=== PATIENT | male | born 1965 | race African-American/Black ===

== ENCOUNTER 2016-12-05 02:15 | Emergency (ER) | payer MEDICAID ==
[~2016-12-05] VITALS: Ht 167.6 cm; Wt 75.0 kg
[2016-12-05 02:30] VITALS: BP 114/71; PULSE 68; RESP 16; TEMP 97.8
[2016-12-05] MEDS ORDERED: SERO25TA PO ×2 (02:40→10:24)
[2016-12-05] MEDS ORDERED: DIVA250ER PO ×2 (02:40→10:22)
[2016-12-05] MEDS ORDERED: SODIUM CHLORIDE 0.9% FLUSH 10 ML FLUSH IVF PRN (02:45)
--- NOTE | 2016-12-05 02:52 | PD ---
HPI Chief Complaint: Chest Pain Time Seen by Provider: 02:32 Travel History International Travel<30 days: No Contact w/Intl Traveler<30days: No Traveled to known affect area: No History of Present Illness HPI Patient is a 51-year-old male who presents to emergency room with multiple complaints. Patient reports that he has history of schizoaffective disorder, reports that he stopped taking his Depakote as well as his Seroquel one month ago as he felt that he was getting much better. Patient reports that for the past few weeks, he has been having hallucinations. Patient reports that today, he woke up from sleep and had left-sided chest pain. Patient reports that symptoms lasted for a few minutes and resolved on its own. Patient with no chest pain at this time. Patient reports that he is homeless, reports that he has thoughts of suicide. Patient denies any homicidal ideations. Patient denies use of any drugs or alcohol. Patient with no other complaints at this time. PFSH Past Medical History Depression: Yes Diabetes: Yes (borderline) Patient Takes Glucophage: No Schizophrenia: Yes Past Surgical History Surgical History: No Previous Surgery Social History Alcohol Use: No Tobacco Use: Yes (occassional) Substance Use: No Allergies-Medications (Allergen,Severity, Reaction): Coded Allergies: No Known Allergies (Unverified , 12/05/16) Reported Meds & Prescriptions Reported Meds & Active Scripts Active Reported Depakote ER (Divalproex Sodium) 250 Mg Elzbieta 250 Mg PO DAILY Seroquel (Quetiapine Fumarate) 25 Mg Tab 25 Mg PO DAILY Review of Systems General / Constitutional: No: Fever Eyes: No: Visual changes HENT: No: Headaches Cardiovascular: Positive: Chest Pain or Discomfort Respiratory: No: Shortness of Breath Gastrointestinal: No: Abdominal Pain Genitourinary: No: Dysuria Musculoskeletal: No: Pain Skin: No Rash Neurologic: No: Weakness Psychiatric: Positive: Depression, Suicidal Ideations, Disorder of Thought, Substance Abuse, No: Homicidal Ideation Endocrine: No: Polydipsia Hematologic/Lymphatic: No: Easy Bruising Physical Exam Narrative GENERAL: mild distress SKIN: Focused skin assessment warm/dry. HEAD: Atraumatic. Normocephalic. EYES: Pupils equal and round. No scleral icterus. No injection or drainage. ENT: No nasal bleeding or discharge. Mucous membranes pink and moist. NECK: Trachea midline. No JVD. CARDIOVASCULAR: Regular rate and rhythm. No murmur appreciated. RESPIRATORY: No accessory muscle use. Clear to auscultation. Breath sounds equal bilaterally. GASTROINTESTINAL: Abdomen soft, non-tender, nondistended. Hepatic and splenic margins not palpable. MUSCULOSKELETAL: No obvious deformities. No clubbing. No cyanosis. No edema. NEUROLOGICAL: Awake and alert. No obvious cranial nerve deficits. Motor grossly within normal limits. Normal speech. PSYCHIATRIC:Flat mood and affect; suicidal ideations Data Data Last Documented VS Vital Signs Date Time Temp Pulse Resp B/P (MAP) Pulse Ox O2 Delivery O2 Flow Rate FiO2 12/05/16 02:30 97.8 68 16 114/71 (85) Orders Orders Electrocardiogram (12/05/16 02:37) Ckmb (Isoenzyme) Profile (12/05/16 02:37) Complete Blood Count With Diff (12/05/16 02:37) Comprehensive Metabolic Panel (12/05/16 02:37) D-Dimer (12/05/16 02:37) Prothrombin Time / Inr (Pt) (12/05/16 02:37) Act Partial Throm Time (Ptt) (12/05/16 02:37) Troponin I (12/05/16 02:37) Chest, Single Ap (12/05/16 02:37) Ecg Monitoring (12/05/16 02:37) Iv Access Insert/Monitor (12/05/16 02:37) Oximetry (12/05/16 02:37) Sodium Chloride 0.9% Flush (Ns Flush) (12/05/16 02:45) Psych Screen (12/05/16 02:37) Drug Screen, Random Urine (12/05/16 02:37) Alcohol (Ethanol) (12/05/16 02:37) Salicylates (Aspirin) (12/05/16 02:37) Tylenol (Acetaminophen) (12/05/16 02:37) Ckmb (Isoenzyme) Profile (12/05/16 06:00) Troponin I (12/05/16 06:00) CKMB (12/05/16 03:00) CKMB% (12/05/16 03:00) Sodium Chlor 0.9% 1000 Ml Inj (Ns 1000 M (12/05/16 04:30) CKMB (12/05/16 06:00) CKMB% (12/05/16 06:00) Labs Laboratory Tests Test 12/05/16 03:00 12/05/16 06:00 White Blood Count 7.9 TH/MM3 Red Blood Count 4.67 MIL/MM3 Hemoglobin 12.7 GM/DL Hematocrit 38.5 % Mean Corpuscular Volume 82.4 FL Mean Corpuscular Hemoglobin 27.1 PG Mean Corpuscular Hemoglobin Concent 32.9 % Red Cell Distribution Width 14.0 % Platelet Count 241 TH/MM3 Mean Platelet Volume 8.7 FL Neutrophils (%) (Auto) 61.4 % Lymphocytes (%) (Auto) 28.6 % Monocytes (%) (Auto) 6.6 % Eosinophils (%) (Auto) 2.5 % Basophils (%) (Auto) 0.9 % Neutrophils # (Auto) 4.9 TH/MM3 Lymphocytes # (Auto) 2.3 TH/MM3 Monocytes # (Auto) 0.5 TH/MM3 Eosinophils # (Auto) 0.2 TH/MM3 Basophils # (Auto) 0.1 TH/MM3 CBC Comment DIFF FINAL Differential Comment Prothrombin Time 11.3 SEC Prothromb Time International Ratio 1.0 RATIO Activated Partial Thromboplast Time 31.7 SEC D-Dimer Quantitative (PE/DVT) LESS THAN 0.19 MG/L FEU Blood Urea Nitrogen 11 MG/DL Creatinine 0.84 MG/DL Random Glucose 88 MG/DL Total Protein 6.2 GM/DL Albumin 3.5 GM/DL Calcium Level 7.8 MG/DL Alkaline Phosphatase 58 U/L Aspartate Amino Transf (AST/SGOT) 23 U/L Alanine Aminotransferase (ALT/SGPT) 26 U/L Total Bilirubin 0.4 MG/DL Sodium Level 141 MEQ/L Potassium Level 3.6 MEQ/L Chloride Level 107 MEQ/L Carbon Dioxide Level 25.3 MEQ/L Anion Gap 9 MEQ/L Estimat Glomerular Filtration Rate 116 ML/MIN Total Creatine Kinase 650 U/L 578 U/L Creatine Kinase MB 4.3 NG/ML 3.8 NG/ML Creatine Kinase MB % 0.7 % 0.7 % Troponin I LESS THAN 0.02 NG/ML LESS THAN 0.02 NG/ML Salicylates Level LESS THAN 1.7 MG/DL Acetaminophen Level 7.2 MCG/ML Ethyl Alcohol Level LESS THAN 3 MG/DL MDM Medical Decision Making Medical Screen Exam Complete: Yes Emergency Medical Condition: Yes Medical Record Reviewed: Yes Interpretation(s) EKG at 0226: NSR at 62bpm, qt/qtc: 370/374, no acute st or t wave changes Vital Signs Date Time Temp Pulse Resp B/P (MAP) Pulse Ox O2 Delivery O2 Flow Rate FiO2 12/05/16 02:30 97.8 68 16 114/71 (85) Differential Diagnosis Differential includes schizoaffective disorder, medication noncompliance, ACS, arrhythmia, pneumothorax, PE, electrolyte abnormality Narrative Course Patient was placed on a nurse monitoring upon arrival to the emergency room. EKG was obtained which showed no acute ST-T wave changes. Patient with no chest pain at this time. Patient now reports that he presented to the emergency room as he is having hallucinations and suicidal thoughts. Lab work including psychiatric screening labs ordered. Patient was placed under Reece Act upon presentation to the ER Vital Signs Date Time Temp Pulse Resp B/P (MAP) Pulse Ox O2 Delivery O2 Flow Rate FiO2 12/05/16 02:30 97.8 68 16 114/71 (85) Laboratory Tests Test 12/05/16 03:00 12/05/16 06:00 White Blood Count 7.9 TH/MM3 (4.0-11.0) Red Blood Count 4.67 MIL/MM3 (4.50-5.90) Hemoglobin 12.7 GM/DL (13.0-17.0) Hematocrit 38.5 % (39.0-51.0) Mean Corpuscular Volume 82.4 FL (80.0-100.0) Mean Corpuscular Hemoglobin 27.1 PG (27.0-34.0) Mean Corpuscular Hemoglobin Concent 32.9 % (32.0-36.0) Red Cell Distribution Width 14.0 % (11.6-17.2) Platelet Count 241 TH/MM3 (150-450) Mean Platelet Volume 8.7 FL (7.0-11.0) Neutrophils (%) (Auto) 61.4 % (16.0-70.0) Lymphocytes (%) (Auto) 28.6 % (9.0-44.0) Monocytes (%) (Auto) 6.6 % (0.0-8.0) Eosinophils (%) (Auto) 2.5 % (0.0-4.0) Basophils (%) (Auto) 0.9 % (0.0-2.0) Neutrophils # (Auto) 4.9 TH/MM3 (1.8-7.7) Lymphocytes # (Auto) 2.3 TH/MM3 (1.0-4.8) Monocytes # (Auto) 0.5 TH/MM3 (0-0.9) Eosinophils # (Auto) 0.2 TH/MM3 (0-0.4) Basophils # (Auto) 0.1 TH/MM3 (0-0.2) CBC Comment DIFF FINAL Differential Comment Prothrombin Time 11.3 SEC (9.8-11.6) Prothromb Time International Ratio 1.0 RATIO Activated Partial Thromboplast Time 31.7 SEC (24.3-30.1) D-Dimer Quantitative (PE/DVT) LESS THAN 0.19 MG/L FEU Blood Urea Nitrogen 11 MG/DL (7-18) Creatinine 0.84 MG/DL (0.60-1.30) Random Glucose 88 MG/DL (74-106) Total Protein 6.2 GM/DL (6.4-8.2) Albumin 3.5 GM/DL (3.4-5.0) Calcium Level 7.8 MG/DL (8.5-10.1) Alkaline Phosphatase 58 U/L (45-117) Aspartate Amino Transf (AST/SGOT) 23 U/L (15-37) Alanine Aminotransferase (ALT/SGPT) 26 U/L (12-78) Total Bilirubin 0.4 MG/DL (0.2-1.0) Sodium Level 141 MEQ/L (136-145) Potassium Level 3.6 MEQ/L (3.5-5.1) Chloride Level 107 MEQ/L (98-107) Carbon Dioxide Level 25.3 MEQ/L (21.0-32.0) Anion Gap 9 MEQ/L (5-15) Estimat Glomerular Filtration Rate 116 ML/MIN (>89) Total Creatine Kinase 650 U/L (39-308) 578 U/L (39-308) Creatine Kinase MB 4.3 NG/ML (0.5-3.6) 3.8 NG/ML (0.5-3.6) Creatine Kinase MB % 0.7 % (0.0-4.0) 0.7 % (0.0-4.0) Troponin I LESS THAN 0.02 NG/ML LESS THAN 0.02 NG/ML Salicylates Level LESS THAN 1.7 MG/DL Acetaminophen Level 7.2 MCG/ML (10.0-30.0) Ethyl Alcohol Level LESS THAN 3 MG/DL (0-5) Two set of troponins are negative, 3 hours apart, ekg with no acute changes. Patient with no chest pain at this time, patient cleared for psychiatric screening Leigh Ann Esquivel DO Dec 05, 2016 02:52
--- NOTE | 2016-12-05 03:09 | RADRPT ---
EXAM DATE/TIME: 12/05/2016 02:43 [facility] COMPARISON: No previous studies available for comparison. INDICATIONS : Chest and back pain. MEDICAL HISTORY : Hypertension. SURGICAL HISTORY : None. ENCOUNTER: Initial ACUITY: 1 day PAIN SCORE: 6/10 LOCATION: Bilateral chest back FINDINGS: A single view of the chest demonstrates the lungs to be symmetrically aerated without evidence of mas s, infiltrate or effusion. The cardiomediastinal contours are unremarkable. Osseous structures are intact. CONCLUSION: No evidence of acute cardiopulmonary disease. Jeff Loaiza MD on December 05, 2016 at 3:08 Board Certified Radiologist. This report was verified electronically.
[2016-12-05 03:21] LABS: AUTOMATED NEUTROPHIL # 4.9 TH/MM3 (1.8-7.7); BASOPHIL # 0.1 TH/MM3 (0-0.2); BASOPHIL % 0.9 % (0.0-2.0); EOSINOPHIL # 0.2 TH/MM3 (0-0.4); EOSINOPHIL % 2.5 % (0.0-4.0); HEMATOCRIT 38.5 % (39.0-51.0); HEMO FLAGS DIFF FINAL; LYMPH % 28.6 % (9.0-44.0); LYMPHOCYTE # 2.3 TH/MM3 (1.0-4.8); MEAN CELL VOLUME 82.4 FL (80.0-100.0); MEAN CORPUSCULAR HEMOGLOBIN 27.1 PG (27.0-34.0); MEAN CORPUSCULAR HGB CONC 32.9 % (32.0-36.0); MONO % 6.6 % (0.0-8.0); NEUT % 61.4 % (16.0-70.0); PLATELET COUNT 241 TH/MM3 (150-450); RED BLOOD COUNT 4.67 MIL/MM3 (4.50-5.90); WHITE BLOOD COUNT 7.9 TH/MM3 (4.0-11.0)
[2016-12-05 03:30] LABS: ALT (GPT) 26 U/L (12-78); ANION GAP 9 MEQ/L (5-15); AST (GOT) 23 U/L (15-37); BICARBONATE 25.3 MEQ/L (21.0-32.0); BLOOD UREA NITROGEN 11 MG/DL (7-18); CHLORIDE 107 MEQ/L (98-107); GLOMERULAR FILTRATION RATE 116 ML/MIN (>89); POTASSIUM 3.6 MEQ/L (3.5-5.1); SODIUM (NA) 141 MEQ/L (136-145)
[2016-12-05 03:35] LABS: ACETAMINOPHEN 7.2 MCG/ML (10.0-30.0); ALKALINE PHOSPHATASE 58 U/L (45-117); CREATINE KINASE 650 U/L (39-308); TOTAL BILIRUBIN ADULT 0.4 MG/DL (0.2-1.0)
[2016-12-05 03:37] LABS: APTT (PATIENT) 31.7 SEC (24.3-30.1); PROTHROMBIN TIME - PATIENT 11.3 SEC (9.8-11.6)
[2016-12-05 04:09] LABS: ALCOHOL LESS THAN 3 MG/DL (0-5)
[2016-12-05 04:22] LABS: CKMB 4.3 NG/ML (0.5-3.6)
[2016-12-05] MEDS ORDERED: SODIUM CHLOR 0.9% 1000 ML INJ 1,000 ML IV ONE (04:30)
[2016-12-05 06:31] LABS: CREATINE KINASE 578 U/L (39-308)
[2016-12-05 06:43] LABS: CKMB 3.8 NG/ML (0.5-3.6)
[2016-12-05 07:28] VITALS: BP 138/74; PULSE 63; RESP 13; O2SAT 97
--- NOTE | 2016-12-05 10:21 | PD ---
History of Present Illness Chief Complaint: Chest Pain Time Seen by Provider: 10:10 Travel History International Travel<30 Days: No Contact w/Intl Traveler<30days: No Known affected area: No Legal Status Legal Status: Reece Act Reece Act Signed By: Dr. Alvin LAKHANI [facility] [place] of Present Illness: History of Present Illness HPI Patient is a 51-year-old male with hx of schizoaffective disorder, not currently on medication because he was feeling better, who presents to emergency room with multiple complaints. Patient reports that for the past few weeks, he has been having hallucinations and admits to having stopped his psychiatric medications x 2 months. Patient reports that he is homeless, reports that he has thoughts of suicide but decided to come to the hospital for treatment . Patient denies any homicidal ideations. Patient seen. EMR reviewed.No previous contact with [facility] [place]. He is alert and oriented, casually and neatly dressed. Engaging and cooperative. There is no psychosis and is denying hallucinatory process. No meme and no objective clinical signs of depression. Speech is clear and logical, No psychosis. Patient denies suicidal ideation, intent or plan. He recognizes that his symptoms are related to not taking his medications. He recently moved to the area and is unsure if he will stay here or if he will return back to [place]. PFSH Past Medical History Depression: Yes Diabetes: Yes (borderline) Patient Takes Glucophage: No Schizophrenia: Yes Past Surgical History Surgical History: No Previous Surgery Psychiatric History Psychiatric History Hx Psychiatric Treatment: HX: SCHIZOAFFECTIVE DISORDER Past suicde attempt one year ago bu overdosin on pills No hx of violence. History of Inpatient Treatment: Yes (Last psychiatric [address] [facility]) Guns or firearms in home: No Social History Born and raised in [place]. Came here 2 months ago. Living with a friend. Works at [employer]. Hx Alcohol Use: No Hx Tobacco Use: Yes (occassional) Hx Substance Use: Yes Substance Use Type: Alcohol Hx of Substance Use Treatment: Yes Family Psychiatric History None reported Allergies-Medications (Allergen,Severity, Reaction): Coded Allergies: No Known Allergies (Unverified , 12/05/16) Reported Meds & Prescriptions Reported Meds & Active Scripts Active Reported Depakote ER (Divalproex Sodium) 250 Mg Elzbieta 250 Mg PO DAILY Seroquel (Quetiapine Fumarate) 25 Mg Tab 25 Mg PO DAILY Review of Systems Musculoskeletal: COMPLAINS OF: Back pain Mental Status Examination Appearance: Appropriate Speech: Unremarkable Orientation: x3 Memory: Unremarkable Thought Content: Goal directed Thought Associations: Intact Language: Other (spontaneous) Fund of Knowledge: Average Hallucination Type: None Attention and Concentration: Good Suicidal Ideation: No Previous Suicide Attempts: Yes Homicidal Ideation: No Previous Homicide Attempts: No Insight: Adequate Judgment: Adequate Affect: Good Mood: Appropriate Motor Activity: Normal gait MDM Medical Decision Making Medical Record Reviewed: Yes Assessment/Plan HPI Patient is a 51-year-old male with hx of schizoaffective disorder, not currently on medication because he was feeling better, who presents to emergency room with multiple complaints. Patient reports that for the past few weeks, he has been having hallucinations and admits to having stopped his psychiatric medications x 2 months. Patient reports that he had been staying with a friend but that they had been having problems. Patient was monitored and he did not present any suicdal or homicidal ideation, intent or plan, no meme and no psychosis. he is accepting a 30 day Rx until he schedules appointment with a provider. Nurse Tonya spoke with his caregiver, Tonya who has no concerns if he is discharged. BA is lifted. Psychiatrically clear for discharge Orders Orders Electrocardiogram (12/05/16 02:37) Ckmb (Isoenzyme) Profile (12/05/16 02:37) Complete Blood Count With Diff (12/05/16 02:37) Comprehensive Metabolic Panel (12/05/16 02:37) D-Dimer (12/05/16 02:37) Prothrombin Time / Inr (Pt) (12/05/16 02:37) Act Partial Throm Time (Ptt) (12/05/16 02:37) Troponin I (12/05/16 02:37) Chest, Single Ap (12/05/16 02:37) Ecg Monitoring (12/05/16 02:37) Iv Access Insert/Monitor (12/05/16 02:37) Oximetry (12/05/16 02:37) Sodium Chloride 0.9% Flush (Ns Flush) (12/05/16 02:45) Psych Screen (12/05/16 02:37) Drug Screen, Random Urine (12/05/16 02:37) Alcohol (Ethanol) (12/05/16 02:37) Salicylates (Aspirin) (12/05/16 02:37) Tylenol (Acetaminophen) (12/05/16 02:37) Ckmb (Isoenzyme) Profile (12/05/16 06:00) Troponin I (12/05/16 06:00) CKMB (12/05/16 03:00) CKMB% (12/05/16 03:00) Sodium Chlor 0.9% 1000 Ml Inj (Ns 1000 M (12/05/16 04:30) CKMB (12/05/16 06:00) CKMB% (12/05/16 06:00) Results Vital Signs Date Time Temp Pulse Resp B/P (MAP) Pulse Ox O2 Delivery O2 Flow Rate FiO2 12/05/16 07:28 63 13 138/74 (95) 97 Room Air 12/05/16 02:30 97.8 68 16 114/71 (85) Laboratory Tests Test 12/05/16 03:00 12/05/16 06:00 12/05/16 09:00 White Blood Count 7.9 Red Blood Count 4.67 Hemoglobin 12.7 Hematocrit 38.5 Mean Corpuscular Volume 82.4 Mean Corpuscular Hemoglobin 27.1 Mean Corpuscular Hemoglobin Concent 32.9 Red Cell Distribution Width 14.0 Platelet Count 241 Mean Platelet Volume 8.7 Neutrophils (%) (Auto) 61.4 Lymphocytes (%) (Auto) 28.6 Monocytes (%) (Auto) 6.6 Eosinophils (%) (Auto) 2.5 Basophils (%) (Auto) 0.9 Neutrophils # (Auto) 4.9 Lymphocytes # (Auto) 2.3 Monocytes # (Auto) 0.5 Eosinophils # (Auto) 0.2 Basophils # (Auto) 0.1 CBC Comment DIFF FINAL Differential Comment Prothrombin Time 11.3 Prothromb Time International Ratio 1.0 Activated Partial Thromboplast Time 31.7 D-Dimer Quantitative (PE/DVT) LESS THAN 0.19 Blood Urea Nitrogen 11 Creatinine 0.84 Random Glucose 88 Total Protein 6.2 Albumin 3.5 Calcium Level 7.8 Alkaline Phosphatase 58 Aspartate Amino Transf (AST/SGOT) 23 Alanine Aminotransferase (ALT/SGPT) 26 Total Bilirubin 0.4 Sodium Level 141 Potassium Level 3.6 Chloride Level 107 Carbon Dioxide Level 25.3 Anion Gap 9 Estimat Glomerular Filtration Rate 116 Total Creatine Kinase 650 578 Creatine Kinase MB 4.3 3.8 Creatine Kinase MB % 0.7 0.7 Troponin I LESS THAN 0.02 LESS THAN 0.02 Salicylates Level LESS THAN 1.7 Acetaminophen Level 7.2 Ethyl Alcohol Level LESS THAN 3 Diagnosis Primary Impression: Schizoaffective disorder Psychiatrically Cleared: Yes Med/ Other Pt Specific Info: Prescription(s) given Prescriptions Quetiapine (Seroquel) 25 Mg Tab 25 MG PO DAILY for Agitation for 30 Days, #30 TAB 0 Refills Prov: Kate Gale 12/05/16 Divalproex ER (Depakote ER) 250 Mg Elzbieta 250 MG PO DAILY for Control Seizures for 30 Days, #30 TAB 0 Refills Prov: Kate Gale 12/05/16 Disposition: 01 DISCHARGE HOME Condition: Stable Problem Qualifiers Primary Impression: Schizoaffective disorder Qualified Codes: F25.0 - Schizoaffective disorder, bipolar type Kate Gale Dec 05, 2016 10:20
--- NOTE | 2016-12-05 11:28 | PD ---
Physical Exam Date Seen by Provider: Dec 05, 2016 Time Seen by Provider: 10:44 Narrative 51-year-old male was under a Reece act for suicidal ideation waiting to be seen by the psych screener. Please refer to her notes. Psych has lifted the Reece act. Patient will be discharged home. As per the nurse patient wants to go to a custodial. Data Data Last Documented VS Vital Signs Date Time Temp Pulse Resp B/P (MAP) Pulse Ox O2 Delivery O2 Flow Rate FiO2 12/05/16 11:02 12/05/16 07:28 63 13 97 Room Air 12/05/16 02:30 97.8 Orders Orders Electrocardiogram (12/05/16 02:37) Ckmb (Isoenzyme) Profile (12/05/16 02:37) Complete Blood Count With Diff (12/05/16 02:37) Comprehensive Metabolic Panel (12/05/16 02:37) D-Dimer (12/05/16 02:37) Prothrombin Time / Inr (Pt) (12/05/16 02:37) Act Partial Throm Time (Ptt) (12/05/16 02:37) Troponin I (12/05/16 02:37) Chest, Single Ap (12/05/16 02:37) Ecg Monitoring (12/05/16 02:37) Iv Access Insert/Monitor (12/05/16 02:37) Oximetry (12/05/16 02:37) Sodium Chloride 0.9% Flush (Ns Flush) (12/05/16 02:45) Psych Screen (12/05/16 02:37) Drug Screen, Random Urine (12/05/16 02:37) Alcohol (Ethanol) (12/05/16 02:37) Salicylates (Aspirin) (12/05/16 02:37) Tylenol (Acetaminophen) (12/05/16 02:37) Ckmb (Isoenzyme) Profile (12/05/16 06:00) Troponin I (12/05/16 06:00) CKMB (12/05/16 03:00) CKMB% (12/05/16 03:00) Sodium Chlor 0.9% 1000 Ml Inj (Ns 1000 M (12/05/16 04:30) CKMB (12/05/16 06:00) CKMB% (12/05/16 06:00) Labs Laboratory Tests Test 12/05/16 03:00 12/05/16 06:00 12/05/16 09:00 White Blood Count 7.9 TH/MM3 Red Blood Count 4.67 MIL/MM3 Hemoglobin 12.7 GM/DL Hematocrit 38.5 % Mean Corpuscular Volume 82.4 FL Mean Corpuscular Hemoglobin 27.1 PG Mean Corpuscular Hemoglobin Concent 32.9 % Red Cell Distribution Width 14.0 % Platelet Count 241 TH/MM3 Mean Platelet Volume 8.7 FL Neutrophils (%) (Auto) 61.4 % Lymphocytes (%) (Auto) 28.6 % Monocytes (%) (Auto) 6.6 % Eosinophils (%) (Auto) 2.5 % Basophils (%) (Auto) 0.9 % Neutrophils # (Auto) 4.9 TH/MM3 Lymphocytes # (Auto) 2.3 TH/MM3 Monocytes # (Auto) 0.5 TH/MM3 Eosinophils # (Auto) 0.2 TH/MM3 Basophils # (Auto) 0.1 TH/MM3 CBC Comment DIFF FINAL Differential Comment Prothrombin Time 11.3 SEC Prothromb Time International Ratio 1.0 RATIO Activated Partial Thromboplast Time 31.7 SEC D-Dimer Quantitative (PE/DVT) LESS THAN 0.19 MG/L FEU Blood Urea Nitrogen 11 MG/DL Creatinine 0.84 MG/DL Random Glucose 88 MG/DL Total Protein 6.2 GM/DL Albumin 3.5 GM/DL Calcium Level 7.8 MG/DL Alkaline Phosphatase 58 U/L Aspartate Amino Transf (AST/SGOT) 23 U/L Alanine Aminotransferase (ALT/SGPT) 26 U/L Total Bilirubin 0.4 MG/DL Sodium Level 141 MEQ/L Potassium Level 3.6 MEQ/L Chloride Level 107 MEQ/L Carbon Dioxide Level 25.3 MEQ/L Anion Gap 9 MEQ/L Estimat Glomerular Filtration Rate 116 ML/MIN Total Creatine Kinase 650 U/L 578 U/L Creatine Kinase MB 4.3 NG/ML 3.8 NG/ML Creatine Kinase MB % 0.7 % 0.7 % Troponin I LESS THAN 0.02 NG/ML LESS THAN 0.02 NG/ML Salicylates Level LESS THAN 1.7 MG/DL Acetaminophen Level 7.2 MCG/ML Ethyl Alcohol Level LESS THAN 3 MG/DL Urine Opiates Screen NEG Urine Barbiturates Screen NEG Urine Amphetamines Screen NEG Urine Benzodiazepines Screen NEG Urine Cocaine Screen NEG Urine Cannabinoids Screen NEG MDM Supervised Visit with SOL: No Diagnosis Primary Impression: Nonspecific chest pain Additional Impression: Depression Qualified Codes: F32.9 - Major depressive disorder, single episode, unspecified Scripts Quetiapine (Seroquel) 25 Mg Tab 25 MG PO DAILY for Agitation for 30 Days, #30 TAB 0 Refills Prov: Gale,Kate Becki Link [facility] GROWER 12/05/16 Divalproex ER (Depakote ER) 250 Mg Elzbieta 250 MG PO DAILY for Control Seizures for 30 Days, #30 TAB 0 Refills Prov: Gale,Kate Becki Link [facility] GROWER 12/05/16 Disposition: 01 DISCHARGE HOME Condition: Stable Keegan Carter MD Dec 05, 2016 10:45
--- NOTE | 2016-12-05 14:37 | EKG ---
Date Performed: 12/05/2016 Time Performed: 02:26:21 PTAGE: 51 years EKG: Sinus rhythm NORMAL ECG NO PREVIOUS TRACING DOCTOR: Rubens Montemayor Interpretating Date/Time 12/05/2016 14:35:31
== END 2016-12-05 11:14 | disposition home or self-care (01) ==
LOC: NEPC 02:15
DX: R07.9 Chest pain, unspecified (principal); F32.9 Major depressive disorder, single episode, unspecified; R44.3 Hallucinations, unspecified; E11.9 Type 2 diabetes mellitus without complications; Z72.0 Tobacco use
CPT/HCPCS: 71010; 80053; 80307; 82550; 82552; 84484; 85025; 85379; 85610; 85730; 93005; 96360; 96361; 99285; J7030

== ENCOUNTER 2016-12-15 02:27 | Emergency (ER) | payer MEDICAID ==
[~2016-12-15] VITALS: Ht 167.6 cm; Wt 70.0 kg
[~2016-12-15 02:27] MED LIST: DIVA250ER PO; SERO25TA PO
[2016-12-15 02:29] VITALS: BP 121/75; PULSE 68; RESP 16; TEMP 97.7; O2SAT 97
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
[2016-12-15 11:57] VITALS: BP 141/77; PULSE 73; RESP 16; TEMP 97.9; O2SAT 98
[2016-12-15 15:04] VITALS: BP 141/90; PULSE 76; RESP 18; TEMP 98.4; O2SAT 100
[2016-12-15 15:57] LABS: AUTOMATED NEUTROPHIL # 6.6 TH/MM3 (1.8-7.7); BASOPHIL # 0.1 TH/MM3 (0-0.2); BASOPHIL % 0.6 % (0.0-2.0); EOSINOPHIL # 0.2 TH/MM3 (0-0.4); EOSINOPHIL % 2.4 % (0.0-4.0); HEMATOCRIT 43.8 % (39.0-51.0); HEMO FLAGS DIFF FINAL; LYMPH % 21.9 % (9.0-44.0); LYMPHOCYTE # 2.1 TH/MM3 (1.0-4.8); MEAN CELL VOLUME 83.1 FL (80.0-100.0); MEAN CORPUSCULAR HEMOGLOBIN 26.6 PG (27.0-34.0); MONO % 6.3 % (0.0-8.0); NEUT % 68.8 % (16.0-70.0); PLATELET COUNT 280 TH/MM3 (150-450); RED BLOOD COUNT 5.26 MIL/MM3 (4.50-5.90); RED CELL DISTRIBUTION WIDTH 14.4 % (11.6-17.2); WHITE BLOOD COUNT 9.6 TH/MM3 (4.0-11.0)
[2016-12-15 16:36] LABS: ALT (GPT) 42 U/L (12-78); ANION GAP 4 MEQ/L (5-15); AST (GOT) 31 U/L (15-37); BICARBONATE 29.8 MEQ/L (21.0-32.0); BLOOD UREA NITROGEN 8 MG/DL (7-18); CHLORIDE 110 MEQ/L (98-107); GLOMERULAR FILTRATION RATE 119 ML/MIN (>89); POTASSIUM 4.9 MEQ/L (3.5-5.1); SODIUM (NA) 144 MEQ/L (136-145)
[2016-12-15 16:38] LABS: ALKALINE PHOSPHATASE 62 U/L (45-117); TOTAL BILIRUBIN ADULT 0.4 MG/DL (0.2-1.0)
[2016-12-15 17:05] LABS: ALCOHOL 23 MG/DL (0-5)
[2016-12-15 18:00] VITALS: BP 131/71; PULSE 69; RESP 18
[2016-12-16 06:16] VITALS: BP 138/72; PULSE 56; RESP 18
--- NOTE | 2016-12-16 09:59 | PD ---
Physical Exam Time Seen by Provider: 09:57 Narrative Please refer to previous providers documentation for details surrounding the patient's current visit. Data Data Last Documented VS Orders Orders Psych Screen (12/15/16 03:04) Diet Regular Basic (12/15/16 Breakfast) Complete Blood Count With Diff (12/15/16 15:12) Comprehensive Metabolic Panel (12/15/16 15:12) Drug Screen, Random Urine (12/15/16 15:12) Alcohol (Ethanol) (12/15/16 15:12) Diet Regular Basic (12/15/16 Dinner) Diet Regular Basic (12/16/16 Breakfast) Labs Laboratory Tests Test 12/15/16 15:15 12/15/16 15:20 White Blood Count 9.6 TH/MM3 Red Blood Count 5.26 MIL/MM3 Hemoglobin 14.0 GM/DL Hematocrit 43.8 % Mean Corpuscular Volume 83.1 FL Mean Corpuscular Hemoglobin 26.6 PG Mean Corpuscular Hemoglobin Concent 32.0 % Red Cell Distribution Width 14.4 % Platelet Count 280 TH/MM3 Mean Platelet Volume 8.5 FL Neutrophils (%) (Auto) 68.8 % Lymphocytes (%) (Auto) 21.9 % Monocytes (%) (Auto) 6.3 % Eosinophils (%) (Auto) 2.4 % Basophils (%) (Auto) 0.6 % Neutrophils # (Auto) 6.6 TH/MM3 Lymphocytes # (Auto) 2.1 TH/MM3 Monocytes # (Auto) 0.6 TH/MM3 Eosinophils # (Auto) 0.2 TH/MM3 Basophils # (Auto) 0.1 TH/MM3 CBC Comment DIFF FINAL Differential Comment Blood Urea Nitrogen 8 MG/DL Creatinine 0.82 MG/DL Random Glucose 70 MG/DL Total Protein 7.6 GM/DL Albumin 4.2 GM/DL Calcium Level 8.9 MG/DL Alkaline Phosphatase 62 U/L Aspartate Amino Transf (AST/SGOT) 31 U/L Alanine Aminotransferase (ALT/SGPT) 42 U/L Total Bilirubin 0.4 MG/DL Sodium Level 144 MEQ/L Potassium Level 4.9 MEQ/L Chloride Level 110 MEQ/L Carbon Dioxide Level 29.8 MEQ/L Anion Gap 4 MEQ/L Estimat Glomerular Filtration Rate 119 ML/MIN Ethyl Alcohol Level 23 MG/DL Urine Opiates Screen NEG Urine Barbiturates Screen NEG Urine Amphetamines Screen NEG Urine Benzodiazepines Screen NEG Urine Cocaine Screen NEG Urine Cannabinoids Screen POS MDM Medical Record Reviewed: Yes Supervised Visit with SOL: No Narrative Course Patient was seen and evaluated yesterday, medically cleared and now evaluated by psychiatry. Reece act has been lifted. No further medical needs, patient will be discharged. Diagnosis Primary Impression: Medical clearance for psychiatric admission Additional Impressions: Alcohol intoxication Qualified Codes: F10.920 - Alcohol use, unspecified with intoxication, uncomplicated Malingering Referrals: [facility] Patient Instructions: Abuse of Alcohol (ED), General Instructions Med/Other Pt SpecificInfo: No Change to Meds Disposition: 01 DISCHARGE HOME Condition: Stable AnaJaclyn MARQUEZ Dec 16, 2016 09:58
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
== END 2016-12-16 10:21 | disposition home or self-care (01) ==
LOC: NEPD 02:27 → NEPJ 12-16 10:21
DX: F10.129 Alcohol abuse with intoxication, unspecified (principal); Y90.1 Blood alcohol level of 20-39 mg/100 ml; Z76.5 Malingerer [conscious simulation]; Z59.0 Homelessness; Z79.899 Other long term (current) drug therapy
CPT/HCPCS: 80053; 80307; 85025; 99284

== ENCOUNTER 2016-12-22 19:46 | Inpatient (IN) | payer MEDICAID, OTHER ==
[~2016-12-22] VITALS: Ht 167.6 cm; Wt 69.3 kg
[2016-12-22 19:47] VITALS: BP 139/81; PULSE 86; RESP 16; TEMP 98.4; O2SAT 96
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
[2016-12-22 22:09] LABS: AUTOMATED NEUTROPHIL # 5.3 TH/MM3 (1.8-7.7); BASOPHIL # 0.1 TH/MM3 (0-0.2); EOSINOPHIL # 0.1 TH/MM3 (0-0.4); EOSINOPHIL % 1.2 % (0.0-4.0); HEMATOCRIT 45.1 % (39.0-51.0); HEMO FLAGS DIFF FINAL; LYMPH % 31.6 % (9.0-44.0); LYMPHOCYTE # 2.8 TH/MM3 (1.0-4.8); MEAN CORPUSCULAR HGB CONC 32.6 % (32.0-36.0); MONO % 7.3 % (0.0-8.0); NEUT % 58.9 % (16.0-70.0); PLATELET COUNT 287 TH/MM3 (150-450); RED BLOOD COUNT 5.44 MIL/MM3 (4.50-5.90); RED CELL DISTRIBUTION WIDTH 14.8 % (11.6-17.2); WHITE BLOOD COUNT 8.9 TH/MM3 (4.0-11.0)
[2016-12-22 22:26] LABS: ANION GAP 11 MEQ/L (5-15); AST (GOT) 29 U/L (15-37); BICARBONATE 25.6 MEQ/L (21.0-32.0); BLOOD UREA NITROGEN 9 MG/DL (7-18); CHLORIDE 105 MEQ/L (98-107); GLOMERULAR FILTRATION RATE 106 ML/MIN (>89); POTASSIUM 4.2 MEQ/L (3.5-5.1); SODIUM (NA) 142 MEQ/L (136-145)
[2016-12-22 22:27] LABS: ALT (GPT) 30 U/L (12-78)
[2016-12-22 22:30] LABS: ALKALINE PHOSPHATASE 63 U/L (45-117); TOTAL BILIRUBIN ADULT 0.3 MG/DL (0.2-1.0)
[2016-12-23 02:29] VITALS: BP 121/63; PULSE 99; RESP 18
[2016-12-23 06:15] VITALS: BP 136/78; PULSE 69; RESP 18
[2016-12-23 11:22] VITALS: BP 153/59; PULSE 87; RESP 16; O2SAT 98
[2016-12-23] MEDS ORDERED: diphenhydrAMINE HCL 50 MG/ML VIAL - HS PRN IM (19:30)
[2016-12-23] MEDS ORDERED: diphenhydrAMINE HCL 50 MG CAP PO PRN (19:30)
[2016-12-23] MEDS ORDERED: diphenhydrAMINE HCL 50 MG CAP - HS PRN PO (19:30)
[2016-12-23] MEDS ORDERED: traZODone HCL 50 MG TAB PO PRN (19:30)
[2016-12-23] MEDS ORDERED: MAGNESIUM HYDROXIDE SUSP 30 ML CUP PO PRN (19:30)
[2016-12-23] MEDS ORDERED: ALUMINUM/MAGNESIUM/SIMETH 30 ML CUP PO PRN (19:30)
[2016-12-23] MEDS ORDERED: diphenhydrAMINE HCL 50 MG/ML VIAL IM PRN (19:30)
[2016-12-23] MEDS ORDERED: LORazepam 2 MG/ML VIAL IM PRN (19:30)
[2016-12-23] MEDS: REMOVE OLD NICOTINE PATCH T-DERMAL SCH (20:22)
[2016-12-23 21:50] VITALS: BP 126/66; PULSE 69; RESP 18; TEMP 98; O2SAT 100
[2016-12-24 05:34] VITALS: BP 135/76; PULSE 61; RESP 17; TEMP 97.9; O2SAT 97
[2016-12-24] MEDS: LORazepam 1 MG TAB PO PRN (08:27)
[2016-12-24] MEDS: NICOTINE 21 MG/24 HR PATCH T-DERMAL SCH (08:28)
[2016-12-24 11:45] LABS: HDL CHOLESTEROL 50.4 MG/DL (40.0-60.0); LDL CHOLESTEROL 60 MG/DL (0-99)
--- NOTE | 2016-12-24 12:19 | PD.TTN ---
Patient Problems 1. Discharge planning 2. Medication compliance 3. Knowledge deficit 4. Lack of coping skills Progress Toward Goals Provider Present: Dr. Domingo Hi Provider Input: Patient is new admission to unit. Nurse(s) Input: Patient is new to unit and is being oriented to this unit. Psychiatric Counselors Present: JOHN Mazariegos Psych Therapist Input: Patient is new to unit and is cooeprative and calm. Group Spec/RT/OT/ABDUL Present: Kemal George OT Group Spec/RT/OT/ABDUL Input: New to unit has not attended groups. [facility]ojana Solano [facility] Dec 24, 2016 12:19
[2016-12-24] MEDS ORDERED: LORazepam 2 MG TAB PO PRN (13:15)
[2016-12-24] MEDS ORDERED: LORazepam 1 MG TAB PO PRN (13:15)
[2016-12-24] MEDS ORDERED: FLUMAZENIL 0.5 MG/5 ML VIAL IV PUSH PRN (13:15)
[2016-12-24] MEDS ORDERED: LORazepam 2 MG/ML VIAL IV PUSH PRN ×4 (13:15)
--- NOTE | 2016-12-24 13:15 | HHI.HP ---
Provisional Diagnosis Admission Date Dec 23, 2016 at 18:56 [place] I. Schizoaffective disorder Certification of Person's Competence To Provide Express and Informed Consent I have personally examined Shayla Cheatham , a person being served at [facility] on, Dec 24, 2016 13:15. Express and informed consent means consent voluntarily given in writing, by a competent person, after sufficient explanation and disclosure of the subject matter involved to enable the person to make a knowing and willful decision without any element of force, fraud, deceit, duress, or other form of constraint or coercion. This person is 18 years of age or older, is not now known to be incompetent to consent to treatment with a guardian advocate, and does not have a health care surrogate or proxy currently making medical treatment decisions. I have found this person to be one of the following: [x] Competent to provide express and informed consent, as defined above, for voluntary admission to this facility and is competent to provide express and informed consent for treatment. He/she has the consistent capacity to make well reasoned, willful, and knowing decisions concerning his or her medical or mental health treatment. The person fully and consistently understands the purpose of the admission for examination/placement and is fully capable of personally exercising all rights assured [place] Incompetent to provide express and informed consent to voluntary admission, and this is incompetent to provide express and informed consent to treatment. The person must be transferred to involuntary status and a petition for a guardian advocate filed with the Circuit Court. [] Refusing to provide express and informed consent to voluntary admission but is competent to provide express and informed consent for treatment. The person must be discharged or transferred to involuntary status. Form shall be completed within 24 hours of a person's arrival at the receiving facility and filed in the clinical record of each person: 1. Admitted on a voluntary basis 2. Permitted to provide express and informed consent to his/her own treatment 3. Allowed to transfer from involuntary to voluntary status 4. Prior to permitting a person to consent to his or her own treatment after having been previously found incompetent to consent to treatment. History of Present Illness Capacity: Has Capacity HPI Patient is a 3-year-old man, homeless, unemployed, on SSI, with a past psychiatric history of schizoaffective disorder, depressed type, 3 previous psychiatric hospitalizations (last being 1-1/2 years ago), 2 previous suicide attempts (last being one half years ago) no self-injurious behavior no current outpatient mental health provider who brought self to the emergency room requested psychiatric evaluation as she was endorsing feeling depressed along with auditory hallucinations and history of noncompliance with medications. Patient was transferred to the inpatient psychiatry or further evaluation and management. Patient found lying in hospital bed superficially cooperative. Patient states that he was "feeling not too good... Feeling down) . Patient states that his recent stressors that contributed to his current depression or related to his discord with his friend, missing his father who 2 years ago, along with decreased sleep, appetite, energy, concentration, pleasure in hobbies, feeling depressed, along with feeling helpless and hopeless and having suicidal ideations for the past 2 days with no method or plan. Patient states that he came down to [place] from [place] with a friend whom he was living with but due to recent argument does not plan to return back to live with this friend. Patient states that there were just not getting along anymore. Patient reports that she is also been having auditory hallucinations stating "you're no good, you might as well and didn't) for the past 2 days. Patient also reports starting to drink alcohol after his argument with his friend. Patient states they have been drinking alcohol recently to 3 days ago prior to his admission which he was unable to recall the amount stating that he drank "a lot". Currently patient reports feeling "better ", continues to report auditory hallucinations which they tell him "negative things, end it"., Reports visual hallucinations of "dark shadows", denies any delusions. Patient at this time cannot contract for safety stating that he is unsure whether he would be able to advise staff prior to him trying to hurt himself on the unit. Past psychiatric history: Previous psychiatric diagnoses of schizoaffective disorder depressed type, 3 previous psychiatric hospitalizations, last being one half years ago, 2 previous suicide attempts via overdose last time being one half years ago, denies previous history of self-injurious behavior. No current outpatient medical and mental health provider, previous medication trials include Seroquel and Depakote. Denies history of physical or sexual abuse Family psychiatric history: Denies Substance use history:Alcohol use once per week, usually 3 beers at a time, last use was 2 days ago which she drank "a lot". Patient reports marijuana use once 3 days ago. Patient reports previous detox or rehabilitation programs more than one year ago. Past medical history: Hypertension Allergies: NKDA Social history: Homeless, quit working a restaurant for 1 week ago, on SSI, highest education is 11th grade, faith: Jain. Legal history, denies Review of Systems Except as stated in HPI: all other systems reviewed are Neg Past Psych History Psychological trauma history Denies Violence risk - others (6 mos) Low Violence risk - self (6 mos) Elevated due to history of previous suicide attempts and current suicidal ideations at this time. Substance Abuse History Drugs/Alcohol past 12 months Alcohol use once per week, usually 3 beers at a time, last use was 2 days ago which she drank "a lot". Patient reports marijuana use once 3 days ago. Patient reports previous detox or rehabilitation programs more than one year ago. Past Family Social History Coded Allergies: shrimp (Verified Allergy, Intermediate, Swelling, 12/22/16) TONGUE SWELLING Reported Medications Divalproex ER (Depakote ER) 250 Mg Elzbieta, 250 MG PO DAILY for Control Seizures, #30 TAB 0 Refills 12/05/16 Quetiapine (Seroquel) 25 Mg Tab, 25 MG PO DAILY, #30 TAB 0 Refills 12/05/16 Current Medications Medications (Trade) Dose Ordered Sig/Jarett Route Start Time Stop Time Status Last Admin (Ativan) 1 mg Q6H PRN PO 12/23/16 19:30 12/24/16 08:27 (Ativan Inj) 1 mg Q6H PRN IM 12/23/16 19:30 (Benadryl) 50 mg Q6H PRN PO 12/23/16 19:30 (Benadryl Inj) 50 mg Q6H PRN IM 12/23/16 19:30 (Benadryl) 50 mg HS PRN PO 12/23/16 19:30 (Benadryl Inj) 50 mg HS PRN IM 12/23/16 19:30 (Desyrel) 50 mg HS PRN PO 12/23/16 19:30 (Tylenol) 650 mg Q4H PRN PO 12/23/16 19:30 (Milk Of Magnesia Liq) 30 ml DAILY PRN PO 12/23/16 19:30 (Mag-Al Plus Susp Liq) 30 ml Q6H PRN PO 12/23/16 19:30 (Habitrol 21 Mg Patch.24 Hr) 1 patch DAILY T-DERMAL 12/24/16 09:00 Miscellaneous Information 1 HS T-DERMAL 12/23/16 21:00 (Depakote Dr) 500 mg BID PO 12/24/16 13:15 UNV (SEROquel) 50 mg BID PO 12/24/16 13:15 UNV (Romazicon Inj) 0.2 mg Q1M PRN IV PUSH 12/24/16 13:15 UNV (Ativan) 1 mg Q4H PRN PO 12/24/16 13:15 UNV (Ativan Inj) 1 mg Q4H PRN IV PUSH 12/24/16 13:15 UNV (Ativan) 2 mg Q2H PRN PO 12/24/16 13:15 UNV (Ativan Inj) 2 mg Q2H PRN IV PUSH 12/24/16 13:15 UNV (Ativan Inj) 2 mg Q1H PRN IV PUSH 12/24/16 13:15 UNV (Ativan Inj) 2 mg Q15M PRN IV PUSH 12/24/16 13:15 UNV Family Psych History Denies Social History Homeless, quit working a restaurant for 1 week ago, on SSI, highest education is 11th grade, faith: Jain. Legal history, denies Patient's Strengths (min. 2) Verbal and communicative Physical Exam Patient not noted to be in acute distress, no gross motor abnormalities, no tremors or EPS, no noted psychomotor retardation or agitation. Vital Signs Vital Signs Date Time Temp Pulse Resp B/P (MAP) Pulse Ox O2 Delivery O2 Flow Rate FiO2 12/24/16 05:34 97.9 61 17 135/76 (95) 97 12/23/16 11:22 Room Air Lab Results Labs reviewed. Test 12/24/16 09:55 Triglycerides Level 140 MG/DL Cholesterol Level 138 MG/DL LDL Cholesterol 60 MG/DL HDL Cholesterol 50.4 MG/DL Cholesterol/HDL Ratio 2.73 RATIO Mental Status Examination Appearance: Disheveled Consciousness: Somnolent Orientation: x4 Motor Activity: Normal gait Speech: Other (low-volume) Language: Adequate Fund of Knowledge: Adequate Attention and Concentration: Inadequate (patient sleepy throughout interview.) Memory: Unremarkable Mood: Sad Affect: Other (restricted) Thought Process & Associations: Logical, Linear Thought Content: Appropriate Hallucination Type: Auditory Delusion Type: None Suicidal Ideation: Yes Suicidal Plan: No Suicidal Intention: No Homicidal Ideation: No Homicidal Plan: No Homicidal Intention: No Insight: Poor Judgment: Poor Assessment & Plan Problem List: (1) Schizoaffective disorder ICD Codes: F25.9 - Schizoaffective disorder, unspecified Assessment & Plan Patient is a 51-year-old man who carries a diagnosis of schizoaffective disorder, [facility], hospitalizations, previous suicide attempts, alcohol use recently who brought self to the ER requesting psychiatric evaluation the context of recent homelessness and medication noncompliance with worsening depressive symptoms along with auditory hallucinations. Patient will be restarted on Depakote 500 mg by mouth twice a day for mood stabilization, quetiapine milligrams by mouth twice a day for psychosis. Continue to monitor mood and behavior while on the unit. Encourage patient to maintain personal hygienic to participate in groups activities while on the unit. Patient was put on one-to-one observation due to inability to contract for safety at this time. Discharge planning in progress Discharge Planning Patient likely be referred to homeless halfway or discharged back to her friend' s residence once psychiatrically stable. Problem Qualifiers (1) Schizoaffective disorder: Qualified Codes: F25.1 - Schizoaffective disorder, depressive type Yang Hi MD Dec 24, 2016 13:15
[2016-12-24] MEDS: QUEtiapine FUMARATE 25 MG TAB PO SCH ×2 (14:12→22:06)
[2016-12-24] MEDS: DIVALPROEX DR 500 MG TABEC PO SCH ×2 (14:12→22:06)
[2016-12-24] MEDS: ACETAMINOPHEN 325 MG TAB PO PRN (14:40)
[2016-12-24 16:07] LABS: HEMOGLOBIN A1a 1.4 %; HEMOGLOBIN A1b 0.8 %; HEMOGLOBIN Ao 84.8 %; HEMOGLOBIN F 1.2 %; HEMOGLOBIN P3 3.5 %
[2016-12-24 16:09] VITALS: BP 109/68; PULSE 60; RESP 18; TEMP 97.8; O2SAT 98
[2016-12-24] MEDS: REMOVE OLD NICOTINE PATCH T-DERMAL SCH (21:00)
[2016-12-25 05:52] VITALS: BP 104/66; PULSE 68; RESP 16; TEMP 97.7; O2SAT 97
[2016-12-25] MEDS: QUEtiapine FUMARATE 25 MG TAB PO SCH (08:12)
[2016-12-25] MEDS: DIVALPROEX DR 500 MG TABEC PO SCH ×2 (08:13→20:33)
[2016-12-25] MEDS: NICOTINE 21 MG/24 HR PATCH T-DERMAL SCH (08:13)
[2016-12-25] MEDS ORDERED: traZODone HCL 50 MG TAB PO SCH (12:00)
--- NOTE | 2016-12-25 13:14 | HHI.PYPN ---
Subjective Remarks Patient seen for follow-up, chart reviewed. Discussion with nursing staff reported patient seclusive, not attending groups, no signs of withdrawal, med compliant. Patient found in day room after using the telephone, noted to be calm and cooperative. He states that he was feeling stressed thinking about his homelessness, and his issues with alcohol use. He reports feeling "not good", depressed and anxious. He states feeling "let people down". He reports having spoken to his friend whom he was living with previously and that she was concerned about his drinking. He continues to endorse SI as well as having had difficulty with sleep last night. Review of Systems Except as stated in HPI: all other systems reviewed are Neg Mental Status Examination Appearance: Disheveled Consciousness: Alert Orientation: x4 Motor Activity: Normal gait Speech: Other (low-volume) Language: Adequate Fund of Knowledge: Adequate Attention and Concentration: Adequate Memory: Unremarkable Mood: Sad, Anxious Affect: Other (restricted) Thought Process & Associations: Logical, Linear Thought Content: Appropriate Hallucination Type: Auditory Delusion Type: None Suicidal Ideation: Yes Suicidal Plan: No Suicidal Intention: No Homicidal Ideation: No Homicidal Plan: No Homicidal Intention: No Insight: Poor Judgment: Poor Results Vitals/IOs Vital Signs Date Time Temp Pulse Resp B/P (MAP) Pulse Ox O2 Delivery O2 Flow Rate FiO2 12/25/16 05:52 97.7 68 16 104/66 (79) 97 12/23/16 11:22 Room Air Assessment & Plan Problem List: (1) Schizoaffective disorder ICD Codes: F25.9 - Schizoaffective disorder, unspecified Assessment & Plan Patient continues to endorse feeling depressed with SI and AH. Will increase quetiapine to 50mg daily/100mg HS, start trazodone 50mg PO HS for sleep disturbance. Continue to encourage maintenence of hygiene and participation in groups and activities. Discharge planning in progress. Justification for Cont. Inpt. At risk for further decompensation if at lower level of care. Discharge Planning Patient interested in rehabilitation program fo substance use which referral to sober living will be appropriate. Problem Qualifiers (1) Schizoaffective disorder: Qualified Codes: F25.1 - Schizoaffective disorder, depressive type Yang Hi MD Dec 25, 2016 13:14
--- NOTE | 2016-12-25 13:38 | PD.TTN ---
Patient Problems 1. Discharge planning 2. Medication compliance 3. Knowledge deficit 4. Lack of coping skills Progress Toward Goals Provider Present: Dr. Domingo Hi Provider Input: Patient endorses feelings of depression surrounding his drinking and homelessness. Patient has increased in his Serequl medication. Will observe for side effects. Nurse(s) Input: Patient remains seclusive and observed to be laying in bed often. Patient seems internally preoccupied. Patient is compliant with medicatinos. Psychiatric Counselors Present: JOHN Mazariegos Psych Therapist Input: Patient remains depressed on unit. Patient discusses issues with homelessness and inability to stay sober. Counselor will make referral to sober living housing such as [address] [place] [address]. Group Spec/RT/OT/ABDUL Present: CHANTELL Estevez Group Spec/RT/OT/ABDUL Input: Patient does not attend group. Yojana SolanoGabriela Dec 25, 2016 13:38
[2016-12-25 15:00] VITALS: BP 127/68; PULSE 84; RESP 18; TEMP 98.3; O2SAT 98
[2016-12-25] MEDS: ACETAMINOPHEN 325 MG TAB PO PRN (15:50)
[2016-12-25] MEDS: traZODone HCL 50 MG TAB PO SCH (20:33)
[2016-12-25] MEDS ORDERED: QUEtiapine FUMARATE 100 MG TAB PO SCH (21:00)
[2016-12-26 05:22] VITALS: BP 120/69; PULSE 59; RESP 17; TEMP 97.7; O2SAT 97
[2016-12-26] MEDS: DIVALPROEX DR 500 MG TABEC PO SCH ×2 (08:58→21:10)
[2016-12-26] MEDS: QUEtiapine FUMARATE 25 MG TAB PO SCH (09:02)
--- NOTE | 2016-12-26 14:18 | HHI.PYPN ---
Subjective Remarks Patient seen for follow-up, chart review. Patient found lying in hospital bed, noted to have slightly slow speech low volume. Patient states that she is mostly in bed because she does not want to be around anyone at this time feeling that he would "real bad luck and anyone". Patient states that his mood has been "good", still feeling depressed and having suicidal ideations "going away a little bit". Patient continues report auditory hallucinations intermittently which voices telling him that he is worthless and screaming at him. Patient states that he spoke with his roommate and that he is welcome back to live there but feels that it may not be comfortable for him to return at this time with her. Patient continues to consider sober living housing and rehabilitation program. Review of Systems Except as stated in HPI: all other systems reviewed are Neg Mental Status Examination Appearance: Disheveled Consciousness: Alert Orientation: x4 Motor Activity: Normal gait Speech: Other (low-volume) Language: Adequate Fund of Knowledge: Adequate Attention and Concentration: Adequate Memory: Unremarkable Mood: Sad, Other ("not good ") Affect: Other (restricted) Thought Process & Associations: Logical, Linear Thought Content: Hallucinations Hallucination Type: Auditory Delusion Type: None Suicidal Ideation: Yes Suicidal Plan: No Suicidal Intention: No Homicidal Ideation: No Homicidal Plan: No Homicidal Intention: No Insight: Poor Judgment: Poor Results Vitals/IOs Vital Signs Date Time Temp Pulse Resp B/P (MAP) Pulse Ox O2 Delivery O2 Flow Rate FiO2 12/26/16 05:22 97.7 59 17 120/69 (86) 97 12/23/16 11:22 Room Air Assessment & Plan Problem List: (1) Schizoaffective disorder ICD Codes: F25.9 - Schizoaffective disorder, unspecified (2) Alcohol use disorder ICD Codes: F10.99 - Alcohol use, unspecified with unspecified alcohol-induced disorder Assessment & Plan Patient noted to be more reactive and engage in interview today. But continues to report feeling depressed along with suicidal ideations past or present but decreasing slightly. Patient continues to have auditory hallucinations which are distressing. We'll increase quetiapine to 50 mg daily/150 mg at bedtime for psychosis, continue Depakote 500 mg by mouth twice a day, will order a Depakote level for tomorrow a.m., continue rest of medications for now. Discharge planning in progress Justification for Cont. Inpt. At risk for further decompensation if at lower level of care Discharge Planning Patient will be referred to sober living housing if accepted. Patient was provided with rehabilitation program packet which she will attempt to contact. Problem Qualifiers (1) Schizoaffective disorder: Qualified Codes: F25.1 - Schizoaffective disorder, depressive type Yang Hi MD Dec 26, 2016 14:18
[2016-12-26] MEDS ORDERED: PILL SPLITTER OTHER PRN (14:30)
[2016-12-26 17:43] VITALS: BP 131/69; PULSE 66; RESP 18; TEMP 98.3; O2SAT 98
[2016-12-26] MEDS ORDERED: QUEtiapine FUMARATE 100 MG TAB PO SCH (21:00)
[2016-12-26] MEDS: traZODone HCL 50 MG TAB PO SCH (21:10)
[2016-12-26] MEDS: ACETAMINOPHEN 325 MG TAB PO PRN (21:27)
[2016-12-27 05:32] VITALS: BP 146/81; PULSE 55; RESP 18; TEMP 98; O2SAT 98
[2016-12-27] MEDS: DIVALPROEX DR 500 MG TABEC PO SCH ×2 (08:32→20:12)
[2016-12-27] MEDS: LORazepam 1 MG TAB PO PRN ×2 (08:33→15:28)
[2016-12-27] MEDS: QUEtiapine FUMARATE 25 MG TAB PO SCH (08:33)
[2016-12-27] MEDS: ACETAMINOPHEN 325 MG TAB PO PRN ×2 (08:41→15:29)
--- NOTE | 2016-12-27 16:28 | HHI.PYPN ---
Subjective Remarks Patient seen for follow-up, chart reviewed. Patient found lying on hospital bed , states that his mood has been "ok" and had gone to some groups. He stats that his AH have been "a little bit...less screams". He reoprts that his mood has been improving with SI and "comes and goes". He reports that he has contacted a sober living facility ([facility] [phone] ) who states that they are willing to accept him when he is discharged. Review of Systems Except as stated in HPI: all other systems reviewed are Neg Mental Status Examination Appearance: Disheveled (improving) Consciousness: Alert Orientation: x4 Motor Activity: Normal gait Speech: Other (low-volume) Language: Adequate Fund of Knowledge: Adequate Attention and Concentration: Adequate Memory: Unremarkable Mood: Other ("ok") Affect: Other (restricted) Thought Process & Associations: Logical, Linear Thought Content: Hallucinations Hallucination Type: Auditory Delusion Type: None Suicidal Ideation: Yes ("come and go") Suicidal Plan: No Suicidal Intention: No Homicidal Ideation: No Homicidal Plan: No Homicidal Intention: No Insight: Fair Judgment: Impulsive Results Labs labs reviewed. Test 12/27/16 09:19 Valproic Acid (Depakene) Level 67 MCG/ML Vitals/IOs Vital Signs Date Time Temp Pulse Resp B/P (MAP) Pulse Ox O2 Delivery O2 Flow Rate FiO2 12/27/16 05:32 98.0 55 18 146/81 (102) 98 12/23/16 11:22 Room Air Intake and Output 12/27/16 12/27/16 12/28/16 08:00 16:00 00:00 Intake Total 240 ml Balance 240 ml Assessment & Plan Problem List: (1) Schizoaffective disorder ICD Codes: F25.9 - Schizoaffective disorder, unspecified (2) Alcohol use disorder ICD Codes: F10.99 - Alcohol use, unspecified with unspecified alcohol-induced disorder Assessment & Plan Patient with improved mood but continues with AH. Will increase quetiapine to 50mg AM/200mg HS, continue rest of medications. Discharge planning in progress. Justification for Cont. Inpt. At risk for further decompensation if at lower level of care. Discharge Planning Patient to be referred to sober living facility once discharged. [facility] [phone] Problem Qualifiers (1) Schizoaffective disorder: Qualified Codes: F25.1 - Schizoaffective disorder, depressive type Yang Hi MD Dec 27, 2016 16:28
[2016-12-27 17:40] VITALS: BP 103/58; PULSE 68; RESP 16; TEMP 98.6; O2SAT 100
[2016-12-27] MEDS: traZODone HCL 50 MG TAB PO SCH (20:12)
[2016-12-27] MEDS ORDERED: QUEtiapine FUMARATE 100 MG TAB PO SCH (21:00)
[2016-12-28 05:59] VITALS: BP 112/59; PULSE 64; RESP 17; TEMP 98.2; O2SAT 98
[2016-12-28 08:36] VITALS: BP 120/65; PULSE 85; RESP 17; TEMP 98.7; O2SAT 99
[2016-12-28] MEDS: DIVALPROEX DR 500 MG TABEC PO SCH ×2 (09:55→20:24)
[2016-12-28] MEDS: QUEtiapine FUMARATE 25 MG TAB PO SCH (09:55)
[2016-12-28] MEDS: ACETAMINOPHEN 325 MG TAB PO PRN (10:01)
[2016-12-28 14:46] VITALS: BP 120/68; PULSE 85; RESP 17; TEMP 98.7
--- NOTE | 2016-12-28 15:25 | HHI.PYPN ---
Subjective Remarks Patient was seen and case discussed with nursing. Per nursing, patient has been seclusive to his room. Complaining of insomnia. Mood is "depressed." Auditory hallucinations are telling him that he is worthless. He denies suicidal or homicidal ideations thought intent or plan. Tolerating medications well Mental Status Examination Appearance: Disheveled (improving) Consciousness: Alert Orientation: x4 Motor Activity: Normal gait Speech: Other (low-volume) Language: Adequate Fund of Knowledge: Adequate Attention and Concentration: Adequate Memory: Unremarkable Mood: Other ("ok") Affect: Other (restricted) Thought Process & Associations: Logical, Linear Thought Content: Hallucinations Hallucination Type: Auditory (that he is worthless) Delusion Type: None Suicidal Ideation: Yes ("come and go") Suicidal Plan: No Suicidal Intention: No Homicidal Ideation: No Homicidal Plan: No Homicidal Intention: No Insight: Fair Judgment: Impulsive Results Vitals/IOs Vital Signs Date Time Temp Pulse Resp B/P (MAP) Pulse Ox O2 Delivery O2 Flow Rate FiO2 12/28/16 14:46 98.7 85 17 120/68 (85) 12/28/16 08:36 99 Assessment & Plan Problem List: (1) Schizoaffective disorder ICD Codes: F25.9 - Schizoaffective disorder, unspecified (2) Alcohol use disorder ICD Codes: F10.99 - Alcohol use, unspecified with unspecified alcohol-induced disorder Assessment & Plan Increase Seroquel to 300 mg by mouth daily at bedtime Justification for Cont. Inpt. Patient would decompensate in a less restrictive setting Problem Qualifiers (1) Schizoaffective disorder: Qualified Codes: F25.1 - Schizoaffective disorder, depressive type Bernardo Cardenas DO Dec 28, 2016 15:25
[2016-12-28 17:40] VITALS: BP 117/62; PULSE 76; RESP 16; TEMP 97.7; O2SAT 98
[2016-12-28] MEDS: traZODone HCL 50 MG TAB PO SCH (20:24)
[2016-12-28] MEDS: QUEtiapine FUMARATE 100 MG TAB PO SCH (20:25)
[2016-12-29 05:31] VITALS: BP 97/61; PULSE 70; RESP 16; TEMP 98.1; O2SAT 97
[2016-12-29] MEDS: QUEtiapine FUMARATE 25 MG TAB PO SCH (08:35)
[2016-12-29] MEDS: ACETAMINOPHEN 325 MG TAB PO PRN (08:35)
[2016-12-29] MEDS: DIVALPROEX DR 500 MG TABEC PO SCH ×2 (08:35→20:14)
--- NOTE | 2016-12-29 14:51 | HHI.PYPN ---
Subjective Remarks Patient was seen and case discussed with nursing. Patient describes his mood as "ups and downs." Per nursing he has been visible today but he was interviewed in bed. Soft spoken, blunted affect. Sleeping better per nursing. Says he hears screams cannot make them out Mental Status Examination Appearance: Disheveled (improving) Consciousness: Alert Orientation: x4 Motor Activity: Normal gait Speech: Other (low-volume) Language: Adequate Fund of Knowledge: Adequate Attention and Concentration: Adequate Memory: Unremarkable Mood: Other ("ok") Affect: Other (restricted) Thought Process & Associations: Logical, Linear Thought Content: Hallucinations Hallucination Type: Auditory (screams) Delusion Type: None Suicidal Ideation: Yes ("come and go") Suicidal Plan: No Suicidal Intention: No Homicidal Ideation: No Homicidal Plan: No Homicidal Intention: No Insight: Fair Judgment: Impulsive Results Vitals/IOs Vital Signs Date Time Temp Pulse Resp B/P (MAP) Pulse Ox O2 Delivery O2 Flow Rate FiO2 12/29/16 05:31 98.1 70 16 97/61 (73) 97 Assessment & Plan Problem List: (1) Schizoaffective disorder ICD Codes: F25.9 - Schizoaffective disorder, unspecified (2) Alcohol use disorder ICD Codes: F10.99 - Alcohol use, unspecified with unspecified alcohol-induced disorder Assessment & Plan Continue current treatment plan Justification for Cont. Inpt. Patient would decompensate in a less restrictive setting Problem Qualifiers (1) Schizoaffective disorder: Qualified Codes: F25.1 - Schizoaffective disorder, depressive type Bernardo Cardenas DO Dec 29, 2016 14:51
[2016-12-29 16:43] VITALS: BP 146/79; PULSE 90; RESP 18; TEMP 98.1; O2SAT 98
[2016-12-29] MEDS: traZODone HCL 50 MG TAB PO SCH (20:14)
[2016-12-29] MEDS: QUEtiapine FUMARATE 100 MG TAB PO SCH (20:14)
[2016-12-30 05:56] VITALS: BP 112/68; PULSE 76; RESP 17; TEMP 98.2; O2SAT 99
[2016-12-30] MEDS: DIVALPROEX DR 500 MG TABEC PO SCH (08:42)
[2016-12-30] MEDS: QUEtiapine FUMARATE 25 MG TAB PO SCH (08:42)
[2016-12-30] MEDS ORDERED: QUET5TAB PO (11:14)
[2016-12-30] MEDS ORDERED: DIVA500T PO (11:14)
[2016-12-30] MEDS ORDERED: TRAZ50TA12 PO (11:14)
[2016-12-30] MEDS ORDERED: QUET1TAB8 PO (11:14)
--- NOTE | 2016-12-30 16:30 | HHI.DS ---
Psychiatry Discharge Summary Inpatient Psychiatric care?: Yes Advance Directive: No Reason Not Provided: DENIES Mental Health AdvanceDirective: No Health Care Proxy: No Admission Admission Date Dec 23, 2016 at 18:56 Admission Diagnosis: (1) Schizoaffective disorder ICD Code: F25.9 - Schizoaffective disorder, unspecified (2) Alcohol use disorder ICD Code: F10.99 - Alcohol use, unspecified with unspecified alcohol-induced disorder Brief History Patient is a 3-year-old man, homeless, unemployed, on SSI, with a past psychiatric history of schizoaffective disorder, depressed type, 3 previous psychiatric hospitalizations (last being 1-1/2 years ago), 2 previous suicide attempts (last being one half years ago) no self-injurious behavior no current outpatient mental health provider who brought self to the emergency room requested psychiatric evaluation as she was endorsing feeling depressed along with auditory hallucinations and history of noncompliance with medications. Patient was transferred to the inpatient psychiatry or further evaluation and management. Patient found lying in hospital bed superficially cooperative. Patient states that he was "feeling not too good... Feeling down) . Patient states that his recent stressors that contributed to his current depression or related to his discord with his friend, missing his father who 2 years ago, along with decreased sleep, appetite, energy, concentration, pleasure in hobbies, feeling depressed, along with feeling helpless and hopeless and having suicidal ideations for the past 2 days with no method or plan. Patient states that he came down to [place] from [place] with a friend whom he was living with but due to recent argument does not plan to return back to live with this friend. Patient states that there were just not getting along anymore. Patient reports that she is also been having auditory hallucinations stating "you're no good, you might as well and didn't) for the past 2 days. Patient also reports starting to drink alcohol after his argument with his friend. Patient states they have been drinking alcohol recently to 3 days ago prior to his admission which he was unable to recall the amount stating that he drank "a lot". Currently patient reports feeling "better ", continues to report auditory hallucinations which they tell him "negative things, end it"., Reports visual hallucinations of "dark shadows", denies any delusions. Patient at this time cannot contract for safety stating that he is unsure whether he would be able to advise staff prior to him trying to hurt himself on the unit. Past psychiatric history: Previous psychiatric diagnoses of schizoaffective disorder depressed type, 3 previous psychiatric hospitalizations, last being one half years ago, 2 previous suicide attempts via overdose last time being one half years ago, denies previous history of self-injurious behavior. No current outpatient medical and mental health provider, previous medication trials include Seroquel and Depakote. Denies history of physical or sexual abuse Family psychiatric history: Denies Substance use history:Alcohol use once per week, usually 3 beers at a time, last use was 2 days ago which she drank "a lot". Patient reports marijuana use once 3 days ago. Patient reports previous detox or rehabilitation programs more than one year ago. Past medical history: Hypertension Allergies: NKDA Social history: Homeless, quit working a restaurant for 1 week ago, on SSI, highest education is 11th grade, nondenominational: Sabianist. Legal history, denies Tobacco Use In Past 30 Days: 5 or More Cigarettes/Day Alcohol Use: 4 or More Times Per Week Hospital Course Patient is a 3-year-old man, homeless, unemployed, on SSI, with a past psychiatric history of schizoaffective disorder, depressed type, 3 previous psychiatric hospitalizations (last being 1-1/2 years ago), 2 previous suicide attempts (last being one half years ago) no self-injurious behavior no current outpatient mental health provider who brought self to the emergency room requested psychiatric evaluation as she was endorsing feeling depressed along with auditory hallucinations and history of noncompliance with medications. Patient was admitted to the inpatient psychiatric unit for further evaluation and management. Patient was started on quetiapine 50mg PO BID and titrated up to 50mg AM/300mg PO HS, restarted on Depakote 500mg PO BID, trazodone 50mg PO HS and continued on CIWA protocol which he was not noted to have experienced symptoms of withdrawal during admission. He responded well to treatment with noted improvement of mood, hopeful and motivated to reach full remission from alcohol use and maintain sobriety and decrease in AH. Patient was noted to be cooperative with staff, noted to be interactive with peers and staff and was progressively active in groups and activities. He had improvement of mood, no longer endorsing depressive symptoms nor suicidal ideation. Upon discharge patient reported feeling better and motivated to continue outpatient treatment rehabilitation for alcohol use, denied any perceptual disturbances nor suicidal ideations or homicidal ideations. Patient agreed to continue treatment and follow up appointments for continuity of care. Patient advised to call 911 or go nearest ED in case of emergency. Patient agreed with plan. Results Blood Pressure 112 / 68 Vital Signs Date Time Temp Pulse Resp B/P (MAP) Pulse Ox O2 Delivery O2 Flow Rate FiO2 12/30/16 05:56 98.2 76 17 112/68 (83) 99 Laboratory Results Test 12/24/16 09:55 12/27/16 09:19 Cholesterol Level 138 MG/DL (120-200) HDL Cholesterol 50.4 MG/DL (40.0-60.0) Hemoglobin A1c 6.0 % (4.3-6.0) LDL Cholesterol 60 MG/DL (0-99) Triglycerides Level 140 MG/DL (42-150) Valproic Acid (Depakene) Level 67 MCG/ML (50-100) Summary of Procedures None Pending results at discharge: No Medications # of Antipsychotic meds at D/C: 1 Approp Antipsych med options 1 - Minimum of three failed multiple trials of monotherapy. 2 - Documented plan to taper to monotherapy due to previous use of multiple meds OR cross-taper in progress at D/C. 3 - Documentation of augmentation of Clozapine. 4 - Justification other than those listed in allowable values 1-3, document here : Discharge Discharge Date: Dec 30, 2016 Discharge Diagnosis: (1) Schizoaffective disorder ICD Code: F25.9 - Schizoaffective disorder, unspecified (2) Alcohol use disorder ICD Code: F10.99 - Alcohol use, unspecified with unspecified alcohol-induced disorder Pt Condition on Discharge: Stable Discharge Disposition: Discharge Home Discharge Instructions Diet Instructions: Heart Healthy Diet Activities you can perform: Regular-No Restrictions Scheduled Appointment: Zack Das Appointment Date: Dec 31, 2016 Appointment Time: 07:30am Discharge Time > 30 minutes Mental Status Examination Appearance: Appropriate Consciousness: Alert Orientation: x4 Motor Activity: Normal gait Speech: Other (low-volume) Language: Adequate Fund of Knowledge: Adequate Attention and Concentration: Adequate Memory: Unremarkable Mood: Appropriate Affect: Appropriate Thought Process & Associations: Logical, Goal directed, Linear Thought Content: Appropriate Hallucination Type: None Delusion Type: None Suicidal Ideation: No Suicidal Plan: No Suicidal Intention: No Homicidal Ideation: No Homicidal Plan: No Homicidal Intention: No Insight: Fair Judgment: Impulsive Discharge/Advance Care Plan Health Problems: (1) Schizoaffective disorder (2) Alcohol use disorder Goals to promote your health * To prevent worsening of your condition and complications * To maintain your health at the optimal level Directions to meet your goals Take your medications as prescribed Follow your dietary instruction Follow activity as directed Keep your appointments as scheduled Take your immunizations and boosters as scheduled If your symptoms worsen call your PCP, if no PCP go to Urgent Care Center or Emergency Room For 23/09 questions related to your inpatient stay or results of tests pending at discharge, please contact Dr. Yang Hi at Smoking is Dangerous to Your Health. Avoid second hand smoking Problem Qualifiers (1) Schizoaffective disorder: Qualified Codes: F25.1 - Schizoaffective disorder, depressive type Yang Hi MD Dec 30, 2016 16:30
== END 2016-12-30 15:33 | disposition home or self-care (01) | DRG 885 ==
LOC: NEPD 19:46 → NEDA 12-23 18:56 → H260 12-23 19:42
PROVIDERS: ADMIT Student in an Organized Health Care Education/Training Program; ATTEND Student in an Organized Health Care Education/Training Program
DX: F25.1 Schizoaffective disorder, depressive type (principal); R45.851 Suicidal ideations; F10.99 Alcohol use, unspecified with unspecified alcohol-induced disorder; I10 Essential (primary) hypertension; F12.90 Cannabis use, unspecified, uncomplicated; G47.00 Insomnia, unspecified; Z59.0 Homelessness; Z91.013 Allergy to seafood; Z91.14 Patient's other noncompliance with medication regimen; Z91.5 Personal history of self-harm
CPT/HCPCS: 80053; 80061; 80164; 80307; 83036; 85025

== ENCOUNTER 2017-03-11 22:53 | Emergency (ER) | payer MEDICAID, OTHER ==
[~2017-03-11] VITALS: Ht 167.6 cm; Wt 72.0 kg
[~2017-03-11 22:53] MED LIST changes: -DIVA250ER PO; +DIVA500T PO; +LURA40 PO; +TRAZ50TA12 PO
[2017-03-11 22:56] VITALS: BP 117/64; PULSE 67; RESP 16; TEMP 98.5; O2SAT 98
[2017-03-12 05:05] LABS: AUTOMATED NEUTROPHIL # 5.7 TH/MM3 (1.8-7.7); BASOPHIL # 0.1 TH/MM3 (0-0.2); EOSINOPHIL # 0.5 TH/MM3 (0-0.4); EOSINOPHIL % 4.7 % (0.0-4.0); HEMATOCRIT 39.5 % (39.0-51.0); HEMOGLOBIN 13.1 GM/DL (13.0-17.0); LYMPH % 28.1 % (9.0-44.0); LYMPHOCYTE # 2.7 TH/MM3 (1.0-4.8); MEAN CORPUSCULAR HEMOGLOBIN 27.8 PG (27.0-34.0); MEAN CORPUSCULAR HGB CONC 33.1 % (32.0-36.0); MEAN PLATELET VOLUME 8.3 FL (7.0-11.0); MONO % 8.2 % (0.0-8.0); MONOCYTE # 0.8 TH/MM3 (0-0.9); PLATELET COUNT 271 TH/MM3 (150-450); RED CELL DISTRIBUTION WIDTH 15.6 % (11.6-17.2); WHITE BLOOD COUNT 9.7 TH/MM3 (4.0-11.0)
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
[2017-03-12 05:18] VITALS: BP 133/77; PULSE 58; RESP 18; O2SAT 99
[2017-03-12 05:28] LABS: ACETAMINOPHEN LESS THAN 2.0 MCG/ML (10.0-30.0); ALBUMIN 4.1 GM/DL (3.4-5.0); ALKALINE PHOSPHATASE 62 U/L (45-117); ALT (GPT) 30 U/L (12-78); AST (GOT) 17 U/L (15-37); BICARBONATE 34.6 MEQ/L (21.0-32.0); BLOOD UREA NITROGEN 15 MG/DL (7-18); CALCIUM 9.2 MG/DL (8.5-10.1); CHLORIDE 99 MEQ/L (98-107); CREATININE 0.92 MG/DL (0.60-1.30); GLOMERULAR FILTRATION RATE 104 ML/MIN (>89); GLUCOSE,RANDOM 88 MG/DL (74-106); SODIUM (NA) 137 MEQ/L (136-145); TOTAL BILIRUBIN ADULT 0.6 MG/DL (0.2-1.0)
[2017-03-12 11:28] VITALS: BP 114/60; PULSE 62; RESP 16; TEMP 98.5; O2SAT 97
== END 2017-03-12 13:49 | disposition left against medical advice (07) ==
LOC: NEPD 22:53
DX: F10.129 Alcohol abuse with intoxication, unspecified (principal); I10 Essential (primary) hypertension; F20.9 Schizophrenia, unspecified; E11.9 Type 2 diabetes mellitus without complications; Z59.0 Homelessness
CPT/HCPCS: 80053; 80164; 80307; 85025; 99284

== ENCOUNTER 2017-03-13 00:44 | Emergency (ER) | payer MEDICAID ==
[~2017-03-13] VITALS: Ht 167.6 cm; Wt 70.0 kg
[2017-03-13 00:46] VITALS: BP 112/64; PULSE 74; RESP 16; TEMP 98.2; O2SAT 97
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
[2017-03-14] MEDS ORDERED: MAGICPED SWISH-SWAL (00:39)
== END 2017-03-13 06:48 | disposition home or self-care (01) ==
LOC: NEPD 00:44
DX: F25.9 Schizoaffective disorder, unspecified (principal); F10.10 Alcohol abuse, uncomplicated; I10 Essential (primary) hypertension; E11.9 Type 2 diabetes mellitus without complications; Z72.0 Tobacco use
CPT/HCPCS: 99283

== ENCOUNTER 2017-03-13 23:18 | Emergency (ER) | payer MEDICAID ==
[~2017-03-13] VITALS: Ht 162.6 cm; Wt 65.0 kg
[2017-03-13 23:23] VITALS: BP 122/73; PULSE 72; RESP 16; TEMP 97.9; O2SAT 98
[2017-03-14] MEDS ORDERED: MAGICPED SWISH-SWAL (00:39)
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
[2017-03-14] MEDS ORDERED: metFORMIN HCL 500 MG TAB PO ONE (04:15)
[2017-03-14] MEDS ORDERED: QUEtiapine FUMARATE 100 MG TAB PO ONE (04:15)
== END 2017-03-14 05:27 | disposition home or self-care (01) ==
LOC: NEPC 23:18
DX: K29.70 Gastritis, unspecified, without bleeding (principal); F25.1 Schizoaffective disorder, depressive type; E11.9 Type 2 diabetes mellitus without complications; I10 Essential (primary) hypertension; Z72.0 Tobacco use
CPT/HCPCS: 99283

== ENCOUNTER 2017-06-26 17:28 | Emergency (ER) | payer MEDICAID ==
[2017-06-26 17:35] VITALS: BP 134/59; PULSE 89; RESP 18; TEMP 98.2; O2SAT 98
[2017-06-26] MEDS ORDERED: DEPA500T3 PO (17:54)
[2017-06-26 18:20] LABS: AUTOMATED NEUTROPHIL # 5.3 TH/MM3 (1.8-7.7); BASOPHIL # 0.1 TH/MM3 (0-0.2); EOSINOPHIL # 0.2 TH/MM3 (0-0.4); EOSINOPHIL % 2.8 % (0.0-4.0); HEMATOCRIT 39.6 % (39.0-51.0); LYMPH % 25.1 % (9.0-44.0); LYMPHOCYTE # 2.2 TH/MM3 (1.0-4.8); MEAN CELL VOLUME 81.7 FL (80.0-100.0); MEAN CORPUSCULAR HEMOGLOBIN 26.7 PG (27.0-34.0); MEAN CORPUSCULAR HGB CONC 32.7 % (32.0-36.0); MEAN PLATELET VOLUME 8.5 FL (7.0-11.0); MONO % 9.4 % (0.0-8.0); MONOCYTE # 0.8 TH/MM3 (0-0.9); NEUT % 61.7 % (16.0-70.0); PLATELET COUNT 268 TH/MM3 (150-450); RED BLOOD COUNT 4.85 MIL/MM3 (4.50-5.90); RED CELL DISTRIBUTION WIDTH 13.8 % (11.6-17.2); WHITE BLOOD COUNT 8.6 TH/MM3 (4.0-11.0)
[2017-06-26 18:38] LABS: ALT (GPT) 32 U/L (12-78); AST (GOT) 29 U/L (15-37); BICARBONATE 26.8 MEQ/L (21.0-32.0); BLOOD UREA NITROGEN 12 MG/DL (7-18); CALCIUM 8.7 MG/DL (8.5-10.1); CHLORIDE 106 MEQ/L (98-107); CREATININE 0.96 MG/DL (0.60-1.30); GLOMERULAR FILTRATION RATE 99 ML/MIN (>89); GLUCOSE,RANDOM 93 MG/DL (74-106); SODIUM (NA) 142 MEQ/L (136-145)
[2017-06-26 18:48] LABS: ALKALINE PHOSPHATASE 70 U/L (45-117); TOTAL BILIRUBIN ADULT 0.3 MG/DL (0.2-1.0); TOTAL PROTEIN 7.3 GM/DL (6.4-8.2)
== END 2017-06-26 18:44 | disposition left against medical advice (07) ==
LOC: NEPD 17:28
DX: Z00.8 Encounter for other general examination (principal); Z53.21 Procedure and treatment not carried out due to patient leaving prior to being seen by health care provider
CPT/HCPCS: 80053; 80307; 84443; 85025; 99281

== ENCOUNTER 2017-07-05 21:31 | Inpatient (IN) | payer MEDICAID ==
[~2017-07-05] VITALS: Ht 170.2 cm; Wt 75.4 kg
[~2017-07-05 21:31] MED LIST changes: +DEPA500T3 PO; -DIVA500T PO; -LURA40 PO; -SERO25TA PO; -TRAZ50TA12 PO
[2017-07-05 21:33] VITALS: BP 138/78; PULSE 70; RESP 22; TEMP 98.6; O2SAT 98
[2017-07-05] MEDS ORDERED: SODIUM CHLOR 0.9% 1000 ML INJ 1,000 ML IV ONE (21:46)
[2017-07-05 21:53] VITALS: BP 131/73; PULSE 69; RESP 15; O2SAT 99
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
[2017-07-05 21:57] VITALS: BP 132/77; PULSE 68; RESP 16; O2SAT 98
--- NOTE | 2017-07-05 22:01 | RADRPT ---
EXAM DATE/TIME: 07/05/2017 21:52 [facility] COMPARISON: No previous studies available for comparison. INDICATIONS : Stroke Alert, right leg weakness, confusion. RADIATION DOSE: 47.18 CTDIvol (mGy) MEDICAL HISTORY : Non-responsive. SURGICAL HISTORY : Non-responsive. ENCOUNTER: Initial ACUITY: 1 day PAIN SCALE: Non-responsive LOCATION: cranial TECHNIQUE: Multiple contiguous axial images were obtained of the head. Using automated exposure control and adj ustment of the mA and/or kV according to patient size, radiation dose was kept as low as reasonably a chievable to obtain optimal diagnostic quality images. DICOM format image data is available electro nically for review and comparison. FINDINGS: CEREBRUM: The ventricles are normal for age. No evidence of midline shift, mass lesion, hemorrhage or acute in farction. No extra-axial fluid collections are seen. POSTERIOR FOSSA: The cerebellum and brainstem are intact. The 4th ventricle is midline. The cerebellopontine angle i s unremarkable. EXTRACRANIAL: The visualized portion of the orbits is intact. Mucosal thickening is noted involving the ethmoid air cells bilaterally and to a lesser extent the left maxillary sinus. SKULL: The calvaria is intact. No evidence of skull fracture. CONCLUSION: No acute intracranial abnormality. The findings were called to Dr. Scott at 9:59 PM on 07/05/17. Seth Morgan MD on July 05, 2017 at 21:56 Board Certified Radiologist. This report was verified electronically.
--- NOTE | 2017-07-05 22:13 | RADRPT ---
EXAM DATE/TIME: 07/05/2017 21:52 [facility] COMPARISON: No previous studies available for comparison. INDICATIONS : Stroke Alert, right leg weakness. IV CONTRAST: 95 cc Visipaque (iodixanol) IV RADIATION DOSE: 28.61 CTDIvol (mGy) MEDICAL HISTORY : Non-responsive. SURGICAL HISTORY : Non-responsive. ENCOUNTER: Initial ACUITY: 1 day PAIN SCALE: Non-responsive LOCATION: cranial TECHNIQUE: Volumetric scanning was performed using a multi-row detector CT scanner. The data was post processed with a variety of visualization algorithms including full volume maximum intensity projection, multi -planar sliding thin slab reformation, curved planar reformation, and surface rendering techniques. Using automated exposure control and adjustment of the mA and/or kV according to patient size, radiat ion dose was kept as low as reasonably achievable to obtain optimal diagnostic quality images. DICO M format image data is available electronically for review and comparison. FINDINGS: There is excellent visualization of the major intracranial arteries out to the second-order branch ve ssels. There is no evidence for aneurysm, vessel truncation or stenosis, and no evidence for vascula r malformation. CONCLUSION: No acute disease. Seth Morgan MD on July 05, 2017 at 22:08 Board Certified Radiologist. This report was verified electronically.
[2017-07-05] MEDS ORDERED: SODIUM CHLORIDE 0.9% 50 ML BAG IVF ONE (22:15)
[2017-07-05] MEDS ORDERED: ALTEPLASE DRIP IV ONE (22:15)
[2017-07-05] MEDS ORDERED: ALTEPLASE BOLUS 9 MG/9 ML SYR IV ONE (22:15)
[2017-07-05] MEDS ORDERED: NURSING INFORMATION XX PRN (22:15)
[2017-07-05] MEDS ORDERED: SODIUM CHLORID 0.9% 500 ML INJ 300 ML IV ONE (22:15)
[2017-07-05 22:22] LABS: AUTOMATED NEUTROPHIL # 5.6 TH/MM3 (1.8-7.7); BASOPHIL # 0.1 TH/MM3 (0-0.2); BASOPHIL % 0.9 % (0.0-2.0); EOSINOPHIL # 0.2 TH/MM3 (0-0.4); EOSINOPHIL % 2.2 % (0.0-4.0); HEMATOCRIT 40.6 % (39.0-51.0); HEMOGLOBIN 13.3 GM/DL (13.0-17.0); LYMPH % 31.6 % (9.0-44.0); LYMPHOCYTE # 3.1 TH/MM3 (1.0-4.8); MEAN CELL VOLUME 82.3 FL (80.0-100.0); MEAN CORPUSCULAR HGB CONC 32.7 % (32.0-36.0); MEAN PLATELET VOLUME 8.5 FL (7.0-11.0); MONO % 9.1 % (0.0-8.0); MONOCYTE # 0.9 TH/MM3 (0-0.9); NEUT % 56.2 % (16.0-70.0); PLATELET COUNT 283 TH/MM3 (150-450); RED BLOOD COUNT 4.93 MIL/MM3 (4.50-5.90); RED CELL DISTRIBUTION WIDTH 13.7 % (11.6-17.2); WHITE BLOOD COUNT 9.9 TH/MM3 (4.0-11.0)
[2017-07-05] MEDS ORDERED: IODIXANOL 320 MG/ML 10 ML VIAL (for Rad CT) IVCONTRAST ONE (22:27)
--- NOTE | 2017-07-05 22:33 | RADRPT ---
EXAM DATE/TIME: 07/05/2017 21:52 [facility] COMPARISON: No previous studies available for comparison. INDICATIONS : Stroke Alert, right leg weakness. IV CONTRAST: 95 cc Visipaque (iodixanol) IV RADIATION DOSE: 28.61 CTDIvol (mGy) MEDICAL HISTORY : Non-responsive. SURGICAL HISTORY : Non-responsive. ENCOUNTER: Initial ACUITY: 1 day PAIN SCALE: Non-responsive LOCATION: neck Elevated flow velocities and ICA/CCA ratios have been found to correlate with increased degrees of vessel stenosis, calculated as percentage of diameter relative to a normal segment of distal ICA/CCA. TECHNIQUE: Volumetric scanning was performed using a multirow detector CT scanner. The data was post processed with a variety of visualization algorithms including full-volume maximum intensity projection, multip lanar sliding thin-slab reformation, curved-planar reformation, and surface-rendering techniques. Us ing automated exposure control and adjustment of the mA and/or kV according to patient size, radiatio n dose was kept as low as reasonably achievable to obtain optimal diagnostic quality images. DICOM f ormat image data is available electronically for review and comparison. FINDINGS: AORTIC ARCH: There is a bovine arch of the great vessels from the aorta. No evidence of ostial narrowing. RIGHT CAROTID: The common carotid artery is intact. The carotid bulb has a normal configuration without ulceration o r narrowing. The internal carotid artery lumen is smooth without stenosis. The external carotid julissa ry is intact. LEFT CAROTID: The common carotid artery is intact. The carotid bulb has a normal configuration without ulceration or narrowing. The internal carotid artery lumen is smooth without stenosis. The external carotid ar yahir is intact. VERTEBRALS: There is a dominant left vertebral artery. The right vertebral artery is occluded proximally and nathan nstituted distally but small in caliber. CONCLUSION: 1. No evidence of carotid stenosis or occlusion. 2. Probable proximal occlusion of the right vertebral artery with reconstitution of a small caliber d istal right vertebral artery. Dominant left vertebral artery. Seth Morgan MD on July 05, 2017 at 22:27 Board Certified Radiologist. This report was verified electronically.
[2017-07-05 22:37] LABS: MAGNESIUM 1.7 MG/DL (1.5-2.5)
[2017-07-05 22:40] LABS: TROPONIN I LESS THAN 0.02 NG/ML (0.02-0.05)
[2017-07-05 22:57] LABS: PROTHROMBIN TIME - PATIENT 10.5 SEC (9.8-11.6)
--- NOTE | 2017-07-05 23:11 | MB ---
cc: Juan Alberto Scott MD, David J MD DATE: 07/05/2017 HISTORY OF PRESENT ILLNESS: A 51-year-old right-handed man with hypertension, [id number] diabetes, hypercholesterolemia, hypothyroidism, a stroke he tells me a year ago which left him weak on the left. He was taking an aspirin after that, but stopped it because he said he was feeling better, seizure from alcohol about 3 years ago. He was in the shower at about 6 p.m. tonight and noticed that his left leg was hurting a little bit. Then, he went to his AA meeting at 7:30 and about 8:00 he noticed he was moving his right leg well and he was brought in as a stroke alert. I was called at 9:50 p.m. Getting out of the wheelchair on the stretcher, his leg actually collapsed on the right side. He had a little bit of a headache but that has passed. He tells me he has had some chest pain in the last 45 minutes on the left side of his chest. REVIEW OF SYSTEMS: He denies any A-fib, Coumadin, blood thinners recently, bleeding in the brain, recent surgery, [place], CABG, stent, renal, hepatic or pulmonary disease, lupus, ulcer, cancer. SOCIAL HISTORY: He is not a smoker. Quit drinking 3 months ago. No drugs. Lives in a [facility]. FAMILY HISTORY: Negative for cancer, seizures or stroke. PAST MEDICAL HISTORY: Schizoaffective disorder, heavy alcohol use, as above, depression. ALLERGIES: SHRIMP. MEDICATIONS: Depakote ER 500 mg a day. PHYSICAL EXAMINATION: VITAL SIGNS: On exam, he is in sinus rhythm on tele and EKG. 70, 22, 138/78. NECK: There were no carotid bruits. HEART: Regular rhythm. I did not detect a murmur. NEUROLOGIC: Pupils are equal. He appears to have decreased visual acuity to the right. Face is symmetric with normal sensation. Tongue was midline. He was able to repeat and name well and do simple calculations. He was 1 off on the month. He follows commands well. There is a positive right drift. Best testing is a 4+/5 on the right deltoid, 5-/5 in the right triceps, 5-/5 in the finger extensors on the right. Right lower extremity iliopsoas. He did get some in persistence, not quite give away, but he does appear to be weak there about a 4/5. Tibialis anterior was weak there about a 4/5. He could not do a straight leg raise very well on his own; however, I can pick it up and hold it up, but then it comes down to the bed after about 2 seconds. Toes are downgoing bilaterally. There is no ankle clonus. Pinprick was diminished in the right arm and leg compared to the left, but intact in the face on the right. He is not ataxic on [id number]. There was no ankle clonus. LABORATORY DATA: CBC is normal. Urine drug screen on his last admission 06/26/2017 was normal. Basic metabolic profile today is normal. Glucose 132. TSH has been normal recently. B12 was normal also this year. LDL cholesterol was normal in March. Coags are pending. CBC tonight is normal. IMAGING STUDIES: CAT scan of the brain and CTA of the [place] had been read as normal by radiology including the vertebrobasilar system. Neck CTA results are pending. Review of the CT of the brain does appear to be normal for his age. CTA is left vertebral dominant otherwise normal on the [place]. CTA of the neck also left vertebral dominant carotids read as normal, vertebral artery is small in general on the right. IMPRESSION: It appears that he has had a left posterior MCA infarct. He has had some weakness on the right side and some vision difficulties. I would put his NIH stroke scale at 6. I am recommending IV TPA and I did tell him the risks of bleeding in the brain. He gave us the go ahead to get the TPA, so that has been started. We will do a stroke workup on him also. MD MADAY Paiz/ , 10:37 PM , 11:10 PM
[2017-07-05] MEDS ORDERED: ONDANSETRON HCL 4 MG/2 ML VIAL IV PUSH PRN (23:15)
[2017-07-05] MEDS ORDERED: BISACODYL 10 MG SUPP RECTAL PRN (23:15)
[2017-07-05] MEDS ORDERED: CHLORHEXIDINE GLUCONATE 2 % 1 PACK (2 CLOTHS) TOP PRN (23:15)
[2017-07-05] MEDS ORDERED: SENNOSIDES 8.6 MG TAB PO PRN (23:15)
[2017-07-05] MEDS ORDERED: SODIUM CHLORIDE 0.9% FLUSH 10 ML FLUSH IV FLUSH PRN (23:15)
[2017-07-05] MEDS ORDERED: NURSING INFORMATION XX SCH (23:15)
[2017-07-05] MEDS ORDERED: LACTULOSE SYRUP 20 GM/30 ML CUP PO PRN (23:15)
[2017-07-05] MEDS ORDERED: MAGNESIUM HYDROXIDE SUSP 30 ML CUP PO PRN (23:15)
[2017-07-05] MEDS ORDERED: RESP: ALBUTEROL 2.5 MG/3 ML NEB (PRN) INH (23:15)
[2017-07-05] MEDS ORDERED: MORPHINE SULFATE 4 MG/ML INJ IV PUSH PRN (23:15)
[2017-07-05 23:17] VITALS: RESP 15; O2SAT 98
[2017-07-05] MEDS: SODIUM CHLOR 0.9% 1000 ML INJ 1,000 ML IV SCH (23:39)
[2017-07-06] VITALS (11 sets, daily range): BP systolic 108–135; BP diastolic 61–98; PULSE 53–78; RESP 16–26; TEMP 98–98.7; O2SAT 98–100
[2017-07-06 00:21] LABS: BILIRUBIN, URINE NEG (NEG); BLOOD, URINE NEG (NEG); GLUCOSE,URINE NEG (NEG); KETONE, URINE NEG (NEG); NITRITE,URINE NEG (NEG); PH, URINE 6.5 (5.0-8.5); URINE COLOR LIGHT-YELLOW (YELLW/STRAW); URINE LEUKOCYTE ESTERASE NEG (NEG)
[2017-07-06 00:22] LABS: ALT (GPT) 23 U/L (12-78); AST (GOT) 27 U/L (15-37); C-REACTIVE PROTEIN 0.37 MG/DL (0.00-0.30); CHOLESTEROL 142 MG/DL (120-200)
[2017-07-06 00:28] LABS: RHEUMATOID FACTOR SCREEN NEGATIVE (NEGATIVE)
[2017-07-06 00:35] LABS: CHOLESTEROL/ HDL RATIO 3.08 RATIO; FREE T4 1.21 NG/DL (0.76-1.46); HDL CHOLESTEROL 46.1 MG/DL (40.0-60.0); LDL CHOLESTEROL 83 MG/DL (0-99); TRIGLYCERIDES 66 MG/DL (42-150)
[2017-07-06 00:36] LABS: FOLATE GREATER THAN 20.0 NG/ML (3.1-17.5)
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
[2017-07-06] MEDS ORDERED: hydrALAZINE HCL 20 MG/ML VIAL IV PUSH PRN (01:45)
[2017-07-06] MEDS ORDERED: LABETALOL HCL 100 MG/20 ML VIAL IV PUSH PRN (01:45)
[2017-07-06] MEDS: SODIUM CHLOR 0.9% 1000 ML INJ 1,000 ML IV SCH ×2 (02:00→20:16)
[2017-07-06] MEDS ORDERED: GLUCAGON 1 MG/ML VIAL OTHER PRN (02:30)
[2017-07-06] MEDS ORDERED: POTASSIUM PHOSPHATE INJ 30 MMOL in SODIUM CHLOR 0.9% 250 ML INJ 250 ML IV PRN (02:30)
[2017-07-06] MEDS ORDERED: MAGNESIUM OXIDE 400 MG TAB PO PRN (02:30)
[2017-07-06] MEDS ORDERED: POTASSIUM CHLOR 20 MEQ PREMIX 100 ML IV PRN ×2 (02:30)
[2017-07-06] MEDS ORDERED: POTASSIUM PHOSPHATE MONOBASIC 500 MG TAB PO PRN (02:30)
[2017-07-06] MEDS ORDERED: DEXTROSE 50% IN WATER 50 ML VIAL(D50) IV PUSH PRN (02:30)
[2017-07-06] MEDS ORDERED: POTASSIUM CHLORIDE 25 MEQ EFFERVESCENT TAB PO PRN (02:30)
[2017-07-06] MEDS ORDERED: MAGNESIUM SULFATE INJ 2 GM in SODIUM CHLORIDE 0.9% INJ 96 ML IV PRN (02:30)
[2017-07-06] MEDS ORDERED: SODIUM PHOSPHATE INJ 30 MMOL in SODIUM CHLOR 0.9% 250 ML INJ 240 ML IV PRN (02:30)
[2017-07-06] MEDS ORDERED: MAGNESIUM SULFATE INJ 4 GM in SODIUM CHLORIDE 0.9% INJ 92 ML IV PRN (02:30)
[2017-07-06] MEDS ORDERED: POTASSIUM PHOSPHATE MONOBASIC 500 MG TAB PO/TUBE PRN (02:30)
[2017-07-06] MEDS ORDERED: POTASSIUM CHLOR 40 MEQ PREMIX 100 ML IV PRN ×2 (02:30)
[2017-07-06] MEDS: CHLORHEXIDINE GLUCONATE 2 % 1 PACK (2 CLOTHS) TOP SCH (04:00)
--- NOTE | 2017-07-06 06:19 | RADRPT ---
EXAM DATE/TIME: 07/06/2017 04:43 [facility] COMPARISON: CHEST SINGLE AP, December 05, 2016, 2:43. INDICATIONS : Stroke alert. MEDICAL HISTORY : None. SURGICAL HISTORY : None. ENCOUNTER: Subsequent ACUITY: 1 day PAIN SCORE: Non-responsive. LOCATION: Bilateral chest FINDINGS: There is mild perihilar parenchymal opacity present bilaterally which maybe developing infiltrate or early edema. No evidence of effusion. Cardiac contour is satisfactory. CONCLUSION: Mild perihilar parenchymal opacities Jeff Schmidt MD on July 06, 2017 at 6:16 Board Certified Radiologist. This report was verified electronically.
[2017-07-06] MEDS: DOCUSATE SODIUM 50 MG/SENNA 8.6 MG TAB PO SCH ×2 (09:18→20:15)
[2017-07-06] MEDS: FAMOTIDINE 20 MG/2 ML VIAL IV PUSH SCH ×2 (09:18→20:15)
[2017-07-06] MEDS: SODIUM CHLORIDE 0.9% FLUSH 10 ML FLUSH IV FLUSH SCH ×2 (09:18→20:15)
[2017-07-06] MEDS: ACETAMINOPHEN 325 MG TAB PO PRN ×2 (09:19→20:15)
--- NOTE | 2017-07-06 11:09 | HHI.PR ---
Subjective Remarks sr Objective Vital Signs Date Time Temp Pulse Resp B/P (MAP) Pulse Ox O2 Delivery O2 Flow Rate FiO2 07/06/17 08:00 98.2 73 18 133/76 (95) 98 07/06/17 07:00 99 Room Air 07/06/17 07:00 78 07/06/17 04:00 98.2 57 17 124/74 (91) 100 07/06/17 01:56 62 07/06/17 01:56 99 Room Air 07/06/17 01:15 98.0 66 16 126/74 (91) 99 07/06/17 00:36 07/05/17 23:17 15 98 Room Air 07/05/17 21:57 68 16 132/77 (95) 98 Room Air 07/05/17 21:53 69 15 131/73 (92) 99 Room Air 07/05/17 21:41 69 20 98 Room Air 07/05/17 21:33 98.6 70 22 138/78 (98) 98 I/O 07/05/17 07/05/17 07/05/17 07/06/17 07/06/17 07/06/17 07:00 15:00 23:00 07:00 15:00 23:00 Intake Total 1000 ml Output Total 500 ml Balance 500 ml Intake Oral 0 ml IV Total 1000 ml Output Urine Total 500 ml Result Diagram: 07/05/172139 Objective Remarks still [facility]- rle nl speech Assessment and Plan Assessment and Plan imp not sure if malingering /psych or real mri should tell sp tpa labs eeg ctax2 and ct neg Juan Alberto Scott MD July 06, 2017 11:09
[2017-07-06] MEDS ORDERED: GADODIAMIDE PF 287 MG/ML 20 ML VIAL (for RAD MRI) IVCONTRAST ONE (12:00)
--- NOTE | 2017-07-06 12:31 | EKG ---
Date Performed: 07/05/2017 Time Performed: 21:35:25 PTAGE: 51 years EKG: Sinus rhythm MODERATE VOLTAGE CRITERIA FOR LVH, CONSIDER NORMAL VARIANT NONSPECIFIC ST & T-WAVE ABNORMALITY SKY DONG ECG PREVIOUS TRACING : 03/08/2017 12.06 Since the previous tracing, no significant change noted DOCTOR: Rubens Montemayor Interpretating Date/Time 07/06/2017 12:30:05
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
--- NOTE | 2017-07-06 23:12 | RADRPT ---
EXAM DATE/TIME: 07/06/2017 22:58 [facility] COMPARISON: CT BRAIN W/O CONTRAST, July 05, 2017, 21:52. INDICATIONS : Follow up stroke; post TPA. Patient complains of headache. RADIATION DOSE: 56.35 CTDIvol (mGy) MEDICAL HISTORY : Cerebrovascular disease. Hypertension. SURGICAL HISTORY : None. ENCOUNTER: Subsequent ACUITY: 1 day PAIN SCALE: 6/10 LOCATION: cranial TECHNIQUE: Multiple contiguous axial images were obtained of the head. Using automated exposure control and adj ustment of the mA and/or kV according to patient size, radiation dose was kept as low as reasonably a chievable to obtain optimal diagnostic quality images. DICOM format image data is available electro nically for review and comparison. FINDINGS: CEREBRUM: The ventricles are normal for age. No evidence of midline shift, mass lesion, hemorrhage or acute in farction. No extra-axial fluid collections are seen. POSTERIOR FOSSA: The cerebellum and brainstem are intact. The 4th ventricle is midline. The cerebellopontine angle i s unremarkable. EXTRACRANIAL: The visualized portion of the orbits is intact. Trace fluid in the maxillary sinuses left greater na n right SKULL: The calvaria is intact. No evidence of skull fracture. CONCLUSION: Minimal maxillary sinus fluid left greater than right. Sunil Martin MD on July 06, 2017 at 23:10 Board Certified Radiologist. This report was verified electronically.
[2017-07-07] VITALS: BP 106/68; PULSE 54; RESP 12; TEMP 98.6; O2SAT 98
[2017-07-07] MEDS: CHLORHEXIDINE GLUCONATE 2 % 1 PACK (2 CLOTHS) TOP SCH (04:00)
--- NOTE | 2017-07-07 07:48 | HHI.PR ---
Subjective Remarks F/U CVA. He is doing okay tolerating diet no dizziness or headache. Participated with physical therapy. Discussed with nursing, patient is malingering faking his right lower extremity weakness. He is able to move his right leg when he is not consciously aware that he is being observed. Objective Vitals Vital Signs Date Time Temp Pulse Resp B/P (MAP) Pulse Ox O2 Delivery O2 Flow Rate FiO2 07/07/17 03:00 Room Air 07/07/17 00:00 98.6 54 12 106/68 (81) 98 07/06/17 23:00 53 07/06/17 20:50 99 21 07/06/17 20:00 98.2 58 26 135/74 (94) 99 07/06/17 19:21 99 Room Air 07/06/17 16:00 98.7 65 19 128/98 (108) 98 07/06/17 16:00 65 07/06/17 12:00 65 07/06/17 12:00 98.7 65 19 108/61 (77) 98 07/06/17 09:20 98 21 07/06/17 08:00 98.2 73 18 133/76 (95) 98 I/O 07/06/17 07/06/17 07/06/17 07/07/17 07/07/17 07/07/17 07:00 15:00 23:00 07:00 15:00 23:00 Intake Total 1000 ml 180 ml Output Total 500 ml 600 ml 580 ml Balance 500 ml -420 ml -580 ml Intake Oral 0 ml 180 ml IV Total 1000 ml Output Urine Total 500 ml 600 ml 580 ml # Voids 1 Result Diagram: 07/05/17 2140 Imaging Last Impressions Brain MRI 07/06/17 1105 Signed Impressions: Service Date/Time: Thursday, July 06, 2017 11:46 - CONCLUSION: 1. No acute intracranial abnormality is identified. There are no findings to indicate recent ischemia. No acute blood products are visualized. 2. Minimal periventricular and subcortical white matter signal change. 3. There is mucoperiosteal thickening within the ethmoid and left maxillary sinus. Jeff Lambert MD Head CT 07/06/17 0000 Signed Impressions: Service Date/Time: Thursday, July 06, 2017 22:58 - CONCLUSION: Minimal maxillary sinus fluid left greater than right. Sunil Martin MD Chest X-Ray 07/06/17 0000 Signed Impressions: Service Date/Time: Thursday, July 06, 2017 04:43 - CONCLUSION: Mild perihilar parenchymal opacities Jeff Schmidt MD Neck CTA 07/05/172145 Signed Impressions: Service Date/Time: Wednesday, July 05, 2017 21:52 - CONCLUSION: 1. No evidence of carotid stenosis or occlusion. 2. Probable proximal occlusion of the right vertebral artery with reconstitution of a small caliber distal right vertebral artery. Dominant left vertebral artery. Seth Morgan MD Head CTA 07/05/172145 Signed Impressions: Service Date/Time: Wednesday, July 05, 2017 21:52 - CONCLUSION: No acute disease. Seth Morgan MD Objective Remarks GENERAL: Well-nourished, well-developed patient who is laying flat SKIN: Warm and dry, well perfused CARDIOVASCULAR: Regular rate and rhythm, sinus rhythm on the monitor with rate in the 60. No murmurs rubs or gallops. RESPIRATORY: Breathing comfortably with no accessory muscle use. Clear to auscultation. Breath sounds equal bilaterally. GASTROINTESTINAL: Abdomen soft, non-tender, nondistended. Bowel sounds present. MUSCULOSKELETAL: Extremities without clubbing, cyanosis, or edema. No obvious deformities. NEUROLOGICAL: Awake and alert. Oriented. He is moving all extremities except for right lower extremities which obviously he is taking. He is able to move it without limitation when he is not consciously aware that he is being observed Procedures TPA A/P Problem List: (1) CVA (cerebral vascular accident) ICD Code: I63.9 - Cerebral infarction, unspecified Status: Acute Assessment and Plan Acute ischemic stroke. Stable Prior history of TBI History of schizoaffective disorder Prior history of alcohol dependence Status post TPA initiated 22: 25 07/05/17. Neurochecks per TPA protocol. Monitor blood pressure and use as needed antihypertensives as needed for systolic blood pressure greater than 180 or diastolic greater than 105. Avoid antiplatelets or anticoagulants for 24 hours after TPA. Cleared to be on aspirin per neurology Telemetry shows sinus rhythm follow-up Holter monitoring. Follow-up hypercoagulable w/u ordered per Dr. Scott. Risk factor modification LDL 83 glucose 89 A1c pending. Urine drug screen screen and alcohol level negative. CTA brain negative, CTA neck is negative for carotid disease. Left vertebral is dominant with proximal right vertebral artery occlusion with reconstitution distally. Dr. Scott following Monitor for any evidence of alcohol withdrawal. Patient states he has had no alcohol for several months Patient has not been taking his Depakote for schizoaffective disorder. Could be resumed if passes swallow evaluation. Last psychiatric hospitalization he was on Depakote 500 twice daily, Latuda 40 mg nightly, trazodone 50 mg nightly. RESP: Prior history of tobacco abuse Albuterol as needed for wheezing Check baseline chest x-ray unremarkable CV: Patient is in sinus rhythm. Monitor for dysrhythmia/atrial fibrillation. Troponin is negative at 0.02. CK-MB fraction is negative. 2D echo without blood clots Hydralazine/labetalol as needed to maintain blood pressure less than 180/105 GI: Advance to 2000-calorie ADA diet if passes swallow eval. Speech therapy consultation if needed FEN/RENAL: Alexandra removed per Dr. Scott. Patient has voided ID: No leukocytosis or fever. Urinalysis negative for evidence of infection. F/ u baseline CXR unremarkable. HEME: Monitor for evidence of bleeding following TPA administration. Baseline hemoglobin is normal at 13.3. Coags normal. Not on antiplatelet or anticoagulant therapy. ENDO: Diabetes mellitus ?Hypothyroidism Patient states he is on an unknown oral hypoglycemic. He is currently euglycemic. Monitor bedside glucose ac/hs. Start insulin if needed for glucose >180 Patient states he has a history of hypothyroidism though I do not see documentation of this during prior admissions.. TSH is normal. PROPH: SCDs for DVT prophylaxis. Famotidine for stress ulcer prophylaxis. ACCESS: Peripheral IV providing adequate access at this time. Avoid IV sticks for 24 hours following TPA. Full code Discharge Planning Discharge patient to home Condition on discharge: Improved Regular Diet as tolerated Ad Marycruz activity no driving Rx written: Aspirin Follow-up with primary care physician, neurology and psychiatry. Patient to follow-up pending results of the hypercoagulable panel, A1c Marc Almonte MD July 07, 2017 07:48
[2017-07-07] MEDS: INSULIN ASPART SUPPLEMENTAL SCALE SQ SCH ×2 (08:00→12:00)
[2017-07-07 08:20] VITALS: BP 130/72; PULSE 69; RESP 18; TEMP 97.9; O2SAT 97
--- NOTE | 2017-07-07 08:35 | HHI.PR ---
Subjective Remarks sr Objective Vital Signs Date Time Temp Pulse Resp B/P (MAP) Pulse Ox O2 Delivery O2 Flow Rate FiO2 07/07/17 08:20 97.9 69 18 130/72 (91) 97 07/07/17 03:00 Room Air 07/07/17 00:00 98.6 54 12 106/68 (81) 98 07/06/17 23:00 53 07/06/17 20:50 99 21 07/06/17 20:00 98.2 58 26 135/74 (94) 99 07/06/17 19:21 99 Room Air 07/06/17 16:00 98.7 65 19 128/98 (108) 98 07/06/17 16:00 65 07/06/17 12:00 65 07/06/17 12:00 98.7 65 19 108/61 (77) 98 07/06/17 09:20 98 21 I/O 07/06/17 07/06/17 07/06/17 07/07/17 07/07/17 07/07/17 07:00 15:00 23:00 07:00 15:00 23:00 Intake Total 1000 ml 180 ml Output Total 500 ml 600 ml 580 ml Balance 500 ml -420 ml -580 ml Intake Oral 0 ml 180 ml IV Total 1000 ml Output Urine Total 500 ml 600 ml 580 ml # Voids 1 Result Diagram: 07/05/172139 Objective Remarks vff now face sym moving r side better walking with PT Assessment and Plan Assessment and Plan imp not sure if malingering /psych or real mri should tell sp tpa labs eeg ctax2 and ct neg -------- 07/07/17 mri nl prob malingering/psych asa 81mg could dc if echo neg Juan Alberto Scott MD July 07, 2017 08:34
[2017-07-07 08:52] VITALS: O2SAT 98
[2017-07-07] MEDS ORDERED: ASPIRIN EC 81 MG TABEC PO SCH (09:00)
[2017-07-07] MEDS: DOCUSATE SODIUM 50 MG/SENNA 8.6 MG TAB PO SCH (09:00)
[2017-07-07] MEDS: SODIUM CHLORIDE 0.9% FLUSH 10 ML FLUSH IV FLUSH SCH (10:33)
[2017-07-07 12:44] VITALS: BP 134/74; PULSE 65; RESP 18; TEMP 98; O2SAT 96
--- NOTE | 2017-07-07 13:08 | ECHRPT ---
Indication: CVA/TIA CONCLUSIONS Normal left ventricular size. Mild concentric left ventricular hypertrophy. The left ventricular systolic function is normal with an estimated ejection fraction of 60%. Normal right ventricular size and systolic function The left atrial size is mildly dilated. There is trace tricuspid valve regurgitation. BP: 135 / 74 HR: Rhythm: Sinus MEASUREMENTS (Male / Female) Normal Values Technical Quality:Fair 2D ECHO LV Diastolic Diameter PLAX 4.7 cm 4.2 - 5.9 / 3.9 - 5.3 cm LV Systolic Diameter PLAX 2.9 cm IVS Diastolic Thickness 1.0 cm 0.6 - 1.0 / 0.6 - 0.9 cm LVPW Diastolic Thickness 1.0 cm 0.6 - 1.0 / 0.6 - 0.9 cm LV Relative Wall Thickness 0.4 RV Internal Dim ED PLAX 1.9 cm LVOT Diameter 2.0 cm Aortic Root Diameter 2.6 cm LA Systolic Diameter LX 3.1 cm 3.0 - 4.0 / 2.7 - 3.8 cm M-MODE AV Cusp Separation MM 1.9 cm DOPPLER AV Peak Velocity 116.0 cm/s AV Peak Gradient 5.4 mmHg AV Mean Gradient 3.0 mmHg AV Velocity Time Integral 19.8 cm LVOT Peak Velocity 86.5 cm/s LVOT Peak Gradient 3.0 mmHg LVOT Velocity Time Integral 15.2 cm AV Area Cont Eq vti 2.4 cm AV Area Cont Eq pk 2.3 cm Mitral E Point Velocity 80.9 cm/s Mitral A Point Velocity 64.2 cm/s Mitral E to A Ratio 1.3 LV E' Lateral Velocity 11.5 cm/s Mitral E to LV E' Lateral Ratio 7.0 LV E' Septal Velocity 7.6 cm/s Mitral E to LV E' Septal Ratio 10.6 PV Peak Velocity 49.6 cm/s PV Peak Gradient 1.0 mmHg FINDINGS LEFT VENTRICLE Normal left ventricular size. Mild concentric left ventricular hypertrophy. The left ventricular systolic function is normal with an estimated ejection fraction in the range of 60%. RIGHT VENTRICLE Normal right ventricular size and systolic function LEFT ATRIUM The left atrial size is mildly dilated. RIGHT ATRIUM The right atrial size is normal. ATRIAL SEPTUM No atrial level shunt is demonstrated by color flow Doppler interrogation. AORTA The aortic root and proximal ascending aorta are not well visualized. MITRAL VALVE Structurally normal mitral valve. No mitral valve stenosis or regurgitation. AORTIC VALVE Trileaflet aortic valve. No aortic valve stenosis or regurgitation. TRICUSPID VALVE There is trace tricuspid valve regurgitation. PULMONARY VALVE Trivial pulmonary valve regurgitation. VESSELS The inferior vena cava is normal in size. PERICARDIUM No pericardial effusion. Anish Greenberg MD, FACC (Electronically Signed) Final Date:07 Jul 2017 13:07
[2017-07-07 13:28] LABS: ALBUMIN 3.5 GM/DL (3.4-5.0); ALT (GPT) 18 U/L (12-78); AST (GOT) 20 U/L (15-37); BICARBONATE 26.4 MEQ/L (21.0-32.0); BLOOD UREA NITROGEN 6 MG/DL (7-18); CALCIUM 8.6 MG/DL (8.5-10.1); CHLORIDE 107 MEQ/L (98-107); CREATININE 0.82 MG/DL (0.60-1.30); GLOMERULAR FILTRATION RATE 119 ML/MIN (>89); GLUCOSE,RANDOM 89 MG/DL (74-106); SODIUM (NA) 141 MEQ/L (136-145)
[2017-07-07 13:31] LABS: ALKALINE PHOSPHATASE 58 U/L (45-117); TOTAL BILIRUBIN ADULT 0.4 MG/DL (0.2-1.0); TOTAL PROTEIN 6.9 GM/DL (6.4-8.2)
[2017-07-07] MEDS: SODIUM CHLOR 0.9% 1000 ML INJ 1,000 ML IV SCH (14:19)
--- NOTE | 2017-07-07 14:27 | MG ---
cc: Juan Alberto Scott MD DATE: 07/07/2017 EEG NUMBER: [id number] Possible left-sided stroke. Recording shows symmetric 9-10 Hz, 60 microvolt posterior rhythm. Hyperventilation was not performed. The patient fell asleep, did not quite reach stage II sleep. No epileptiform or seizure activity was noted. There were no hemisphere asymmetries. Photic stimulation was performed without any posterior driving. IMPRESSION: A normal awake and sleep electroencephalogram. No evidence for a focal or diffuse abnormality. Specifically, no left hemisphere abnormality was noted. Juan Alberto Scott MD DJM/TAYLOR , 02:16 PM , 02:26 PM
--- NOTE | 2017-07-07 15:24 | HHI.DCPOC ---
Discharge Care Plan Diagnosis: (1) CVA (cerebral vascular accident) Your Health Problems Are: Difficulty with ADL Exercise Tolerance Goals to Promote Your Health * To prevent worsening of your condition and complications * To maintain your health at the optimal level Directions to Meet Your Goals Take your medications as prescribed Follow your dietary instruction Follow activity as directed Keep your appointments as scheduled Take your immunizations and boosters as scheduled If your symptoms worsen call your PCP, if no PCP go to Urgent Care Center or Emergency Room Smoking is Dangerous to Your Health. Avoid second hand smoke Call the 24-hour hour crisis hotline for domestic abuse at Marc Almonte MD July 07, 2017 15:24
[2017-07-07] MEDS ORDERED: ECASA81 PO (15:34)
[2017-07-07] MEDS ORDERED: WALKER WHEELS/F1 MIS (15:45)
[2017-07-07 16:24] VITALS: BP 149/84; PULSE 73; RESP 18; TEMP 98; O2SAT 97
[2017-07-08 15:27] LABS: PROTEIN C ACTIVITY 92 % (70 - 150); PROTEIN S ACTIVITY 101 % (65 - 160)
[2017-07-08 21:28] LABS: ALB/GLOB RATIO (SPE) 1.6 (1.39-2.23)
== END 2017-07-07 17:08 | disposition home or self-care (01) | DRG 62 ==
LOC: NEPC 21:31 → NEDA 23:05 → N03B 07-06 00:12 → N05A 07-07 02:40
PROVIDERS: ADMIT Internal Medicine; ATTEND Internal Medicine
PROC: 3E03317 Introduction of Other Thrombolytic into Peripheral Vein, Percutaneous Approach (ICD-10-PCS; principal; 2017-07-05)
PROC: 0T9B70Z Drainage of Bladder with Drainage Device, Via Natural or Artificial Opening (ICD-10-PCS; 2017-07-05)
DX: I63.519 Cerebral infarction due to unspecified occlusion or stenosis of unspecified middle cerebral artery (principal); I69.354 Hemiplegia and hemiparesis following cerebral infarction affecting left non-dominant side; G81.91 Hemiplegia, unspecified affecting right dominant side; I10 Essential (primary) hypertension; F25.1 Schizoaffective disorder, depressive type; E11.9 Type 2 diabetes mellitus without complications; Z76.5 Malingerer [conscious simulation]; Z87.820 Personal history of traumatic brain injury; Z72.0 Tobacco use; E03.9 Hypothyroidism, unspecified; E78.5 Hyperlipidemia, unspecified; Z83.3 Family history of diabetes mellitus; F10.21 Alcohol dependence, in remission; Z79.84 Long term (current) use of oral hypoglycemic drugs
CPT/HCPCS: 70450; 70496; 70498; 70553; 71045; 80048; 80053; 80061; 80307; 81001; 81240; 81241; 81291; 82550; 82552; 82746; 82948; 83036; 83735; 83921; 84165; 84425; 84439; 84443; 84450; 84460; 84484; 85025; 85240; 85300; 85303; 85306; 85384; 85610; 85613; 85652; 85730; 86038; 86140; 86147; 86430; 86592; 86850; 86900; 86901; 87641; 93005; 93306; 95819; 96361; 96365; 96375; A9579; J2997; J7030; J7040; Q9967